=== PATIENT | male | born 1955 | race Caucasian/White ===

== ENCOUNTER → 2016-02-15 | Day surgery (SDC) | payer BC, OTHER ==
[2016-01-26 09:27] VITALS: Ht 170.2 cm; Wt 106.8 kg
[~2016-02-15] VITALS: Ht 170.2 cm; Wt 106.8 kg
[~2016-02-15] MED LIST: ASPI81TA28 PO; ATOR-26 PO; CRD4 PO; DULO1CAP39 PO; EPP3/2 IM; IBUP-1050 PO; LIDOCAINE HCL 2% 2 ML VIAL (20MG/ML) ONE; LINA1CAP PO; MULT-506 PO; OXYC1TAB3 PO; PHENYLEPHRINE 100MCG/ML 5ML SYR ONE; POLY335019 PO; PRLSR20 PO; PROPOFOL IV EMULSION 10 MG/ML 20 ML VIAL IV ONE; ZOLP10TA PO; [UNRECOGNIZED DRUG - CODE] PO
[2016-02-15 14:03] VITALS: TEMP 36.8
--- NOTE | 2016-02-15 14:42 | Endo History and Physical ---
History & Physical Date of Service: Feb 15, 2016. Chief Complaint: GERD, CONSTIPATION Referring Physician: Dr. Neftaly Villatoro History of Present Illness For EGD and colonoscopy Past Medical History Male Genitourinary Prob., Reflux, High Cholesterol, Sleep Apnea Past Surgical History Hx Cardiac Surgery: Yes (HEART CATH, NO STENTS) Hx Internal Defibrillator: No Hx Pacemaker: No Hx Abdominal Surgery: Yes (L/R INGUINAL HERNIA REPAIR, UMBILICAL HERNIA REPAIR) Hx of Implantable Prosthesis: No Hx Post-Op Nausea and Vomiting: No Hx Cancer Surgery: No Hx Thoracic Surgery: No Hx Orthopedic: Yes (BACK SURGERY X4, LT ULNAR NERVE SURGERY, RT KNEE SURGERY) Hx Urinary Tract Surgery: No Family History Esophogeal CA, Polyp Social History Smoking Status: Never Smoker Hx Substance Use: No Hx Alcohol Use: Yes (OCCASIONAL) Allergies Coded Allergies: BEE STING (Verified Allergy, Unknown, SITE SWELLING, DIFFICULTY BREATHING , 02/15/16) Horse Serum Proteins (Verified Allergy, Unknown, RASH/GENERALIZED SWELLING , 02/15/16) Tetanus Toxoid (Verified Allergy, Unknown, RASH/GENERALIZED SWELLING, ) Current Medications Reported Home Medications Medications Dose Route/Sig Max Daily Dose Days Date Category Advil (Ibuprofen) 200 Mg Tab 400 Mg PO 02/15/16 Reported Roxicodone Ir (Oxycodone HCl) 5 Mg Tab 1-2 Tab PO Q2-3H PRN 01/26/16 Reported Lipitor (Atorvastatin Calcium) 80 Mg Tab 0.5 Tab PO HS 01/26/16 Reported Allergy Relief D (Loratadine & Pseudoephedrine) 1 Tab Tab 1 Tab PO QAM 11/24/15 Reported Ambien (Zolpidem Tartrate) 10 Mg Tab 10 Mg PO HS PRN 11/24/15 Reported Miralax (Polyethylene Glycol 3350) 1 Pow Pow 17 Gm PO QAM PRN 11/24/15 Reported Linzess (Linaclotide) 145 Mcg Cap 1 Cap PO QAM PRN 11/24/15 Reported Doxazosin Mesylate 4 Mg Tab 4 Mg PO PM 11/18/14 Reported Duloxetine HCl 30 Mg Cap 30 Mg PO QAM 11/18/14 Reported Epipen (Epinephrine) 0.3 Mg/0.3 Ml Inj 0.3 Mg IM UD PRN 11/18/14 Reported Aspirin Ec (Aspirin) 81 Mg Tab 81 Mg PO QAM 11/18/14 Reported Prilosec (Omeprazole) 20 Mg Capcr 20 Mg PO QAM 07/06/11 Reported Multivitamin (Multivitamins) Tab 1 Tab PO QAM 10/22/09 Reported Vital Signs Weight (Kilograms): 106.82 Height (Feet): 5 Height (Inches): 7 Date Time Temp Pulse Resp B/P Pulse Ox O2 Delivery O2 Flow Rate FiO2 02/15/16 14:03 36.8 65 20 128/71 97 Room Air 0 Physical Exam General Appearance: + obese Respiratory/Chest: Respiratory effort: no dyspnea Cardiovascular: Heart Auscultation: RRR Abdomen: Inspection & Palpation: soft Assessment and Plan GERD and constipation for EGD and colonoscopy
--- NOTE | 2016-02-15 15:02 | Discharge Instructions ---
Endoscopy Patient Instructions Date / Procedure(s) Performed Feb 15, 2016. Colonoscopy, EGD Allergy Information Coded Allergies: BEE STING (Verified Allergy, Unknown, SITE SWELLING, DIFFICULTY BREATHING , 02/15/16) Horse Serum Proteins (Verified Allergy, Unknown, RASH/GENERALIZED SWELLING , 02/15/16) Tetanus Toxoid (Verified Allergy, Unknown, RASH/GENERALIZED SWELLING, ) Discharge Date / Findings Feb 15, 2016. Diverticulosis Medication Instructions Stopped Medication(s): ASPIRIN-LAST DOSE 02/12/16 Restart Stopped Medication(s): resume meds Begin Miralax once a day OTC Provider Instructions Activity Restrictions - No exercising or heavy lifting for 24 hours. - Do not drink alcohol the day of the procedure. - Do not drive a car or operate machinery until the day after the procedure. - Do not make any important decisions or sign important papers in 24 hours after the procedure. Following Day: - Return to full activity which may include returning to work/school. Diet Start your diet with liquids and light foods (jello, soup, juice, toast). Then eat your usual diet if not nauseated. Treatment For Common After Affects For mild abdominal pain, bloating, or excessive gas: - Rest - Eat lightly - Lie on right side Follow-Up Information Follow-up with Dr. Neftaly Villatoro as scheduled Anesthesia Information What You Should Know You have had a procedure that required some medicine to reduce anxiety and discomfort. This treatment is called moderate sedation. After receiving the treatment, you may be sleepy, but you will be able to breathe on your own. The effects of the treatment may last for several hours. Follow these instructions along with Activity/Diet recommendations noted above: * Do NOT do anything where dizziness or clumsiness would be dangerous. * Rest quietly at home today, then you can be up and about tomorrow. * Have a responsible person stay with you the rest of today. * You may have had an I.V. today. If so, you may take the dressing off later today. Recommendations Call your doctor if: * Trouble breathing * Continuous vomiting for more than 24 hours * Temperature above 101 degrees * Severe abdominal pain or bloating * Pain not relieved by pain medicine ordered * There is increased drainage or redness from any incision * A large amount of rectal bleeding greater than 2-3 tablespoons. (If you had a polyp/s removed or have hemorrhoids, a small amount of blood - from the rectum is to be expected.) * You have any unanswered questions or concerns. IN THE EVENT OF A SERIOUS EMERGENCY, GO TO THE NEAREST EMERGENCY ROOM Your discharge instructions were prepared by provider Elder Clemens. Patient Instructions Signature Page Bryce Yeh Patient (or Guardian) Signature/Date: I have read and understand the instructions given to me by my caregivers. Caregiver/RN/Doctor Signature/Date: The above-named patient and/or guardian has received patient instructions on this date. + Original Patient Signature Page (only) stays with chart. Please make copy for patient.
--- NOTE | 2016-02-15 15:05 | GI REPORT ---
Procedure Date: 02/15/2016 2:39 PM Procedure: Upper GI endoscopy Indications: Heartburn, Suspected gastro-esophageal reflux disease Medicines: Propofol total dose 260 mg IV, Lidocaine 80 mg IV Complications: No immediate complications. Estimated Blood Loss: Estimated blood loss: none. Procedure: Pre-Anesthesia Assessment: - Prior to the procedure, a History and Physical was performed, and patient medications, allergies and sensitivities were reviewed. The patient's tolerance of previous anesthesia was reviewed. - The risks and benefits of the procedure and the sedation options and risks were discussed with the patient. All questions were answered and informed consent was obtained. After obtaining informed consent, the endoscope was passed under direct vision. Throughout the procedure, the patient's blood pressure, pulse, and oxygen saturations were monitored continuously. The Scope was introduced through the mouth, and advanced to the second part of duodenum. The upper GI endoscopy was accomplished without difficulty. The patient tolerated the procedure well. Findings: The esophagus was normal. The stomach was normal. The examined duodenum was normal. Impression: - Normal esophagus. - Normal stomach. - Normal examined duodenum. - No specimens collected. Recommendation: - Discharge patient to home (ambulatory). - Continue present medications. - Return to primary care physician PRN. Elder Clemens M.D. Elder Clemens MD 02/15/2016 3:04:53 PM This report has been signed electronically. Note Initiated On: 02/15/2016 2:39 PM
--- NOTE | 2016-02-15 15:09 | GI REPORT ---
Procedure Date: 02/15/2016 2:39 PM Procedure: Colonoscopy Indications: Constipation Medicines: Propofol total dose 260 mg IV, Lidocaine 80 mg IV Complications: No immediate complications. Estimated Blood Loss: Estimated blood loss: none. Procedure: Pre-Anesthesia Assessment: - Prior to the procedure, a History and Physical was performed, and patient medications, allergies and sensitivities were reviewed. The patient's tolerance of previous anesthesia was reviewed. - The risks and benefits of the procedure and the sedation options and risks were discussed with the patient. All questions were answered and informed consent was obtained. After I obtained informed consent, the scope was passed under direct vision. Throughout the procedure, the patient's blood pressure, pulse, and oxygen saturations were monitored continuously. The scope was introduced through the anus and advanced to the cecum, identified by appendiceal orifice and ileocecal valve. The colonoscopy was technically difficult and complex due to significant looping. Successful completion of the procedure was aided by applying abdominal pressure. The patient tolerated the procedure well. The quality of the bowel preparation was good. Findings: Multiple diverticula were found in the sigmoid colon. Impression: - Diverticulosis in the sigmoid colon. - No specimens collected. Recommendation: - Discharge patient to home (ambulatory). - Miralax 1 capful (17 grams) in 8 ounces of water PO daily indefinitely. - Repeat colonoscopy in 10 years for screening purposes. - Return to primary care physician PRN. Elder Clemens M.D. Elder Clemens MD 02/15/2016 3:08:10 PM This report has been signed electronically. Note Initiated On: 02/15/2016 2:39 PM
--- NOTE | 2016-02-15 15:15 | Anesthesiology Progress Note ---
Anesthesia Post Op Note Date & Time Feb 15, 2016 at 15:14 Vital Signs Vital Signs Past 12 Hours Date Time Temp Pulse Resp B/P Pulse Ox O2 Delivery O2 Flow Rate FiO2 02/15/16 14:03 36.8 65 20 128/71 97 Room Air 0 Notes Mental Status: alert / awake / arousable, participated in evaluation Pt Amnestic to Procedure: Yes Nausea / Vomiting: adequately controlled Pain: adequately controlled Airway Patency, RR, SpO2: stable & adequate BP & HR: stable & adequate Hydration State: stable & adequate Anesthetic Complications: no major complications apparent
[2016-02-15 15:31] VITALS: BP 129/79; PULSE 85; O2SAT 96
== END | disposition home or self-care (01) ==
LOC: C.GI 13:41
PROVIDERS: ATTEND Internal Medicine Gastroenterology
DX: K57.30 Diverticulosis of large intestine without perforation or abscess without bleeding (principal); K59.00 Constipation, unspecified; K21.9 Gastro-esophageal reflux disease without esophagitis; G47.30 Sleep apnea, unspecified; E78.00 Pure hypercholesterolemia, unspecified; Z80.0 Family history of malignant neoplasm of digestive organs; Z83.71 Family history of colonic polyps

== ENCOUNTER → 2017-04-12 | Outpatient (CLI) | payer OTHER ==
[~2017-04-12] MED LIST changes: -LIDOCAINE HCL 2% 2 ML VIAL (20MG/ML) ONE; -PHENYLEPHRINE 100MCG/ML 5ML SYR ONE; -PROPOFOL IV EMULSION 10 MG/ML 20 ML VIAL IV ONE
--- NOTE | 2017-04-12 15:09 | DIAGNOSTIC IMAGING REPORT ---
ART DOP LOWER EXT BILAT CLINICAL HISTORY: 61 years-old Male presenting with BILATERAL LOWER EXTREMITY CLAUDICATION. TECHNIQUE: Real-time grayscale and color and spectral Doppler ultrasound imaging of the bilateral lower extremities arteries was performed. Measurements calculated based on NASCET criteria. COMPARISON: None. FINDINGS: Right: Common femoral artery: Patent. Peak systolic velocity 102 cm/s. Superficial femoral artery: Patent. Peak systolic velocity 72-88 cm/s. Deep femoral artery: Patent. Peak systolic velocity 57 cm/s. Popliteal artery: Patent. Peak systolic velocity 52-57 cm/s. Anterior tibial artery: Patent. Peak systolic velocity 49-73 cm/s. Posterior tibial artery: Patent. Peak systolic velocity 57-73 cm/s. Peroneal artery: Patent. Peak systolic velocity 32-45 cm/s. Dorsalis pedis: Patent. Peak systolic velocity 62 cm/s. Left: Common femoral artery: Patent. Peak systolic velocity 83 cm/s. Superficial femoral artery: Patent. Peak systolic velocity 46-88 cm/s. Deep femoral artery: Patent. Peak systolic velocity 57 cm/s. Popliteal artery: Patent. Peak systolic velocity 53-54 cm/s. Anterior tibial artery: Patent. Peak systolic velocity 53-64 cm/s. Posterior tibial artery: Patent. Peak systolic velocity 58-74 cm/s. Peroneal artery: Patent. Peak systolic velocity 32-39 cm/s. Dorsalis pedis: Patent. Peak systolic velocity 65 cm/s. JOSÉ MIGUEL Brachial: Right: 124 mmHg, Left: 117 mmHg. Ankle (Posterior tibial): Right: 147 mmHg, Left: 137 mmHg. Ankle (Dorsalis pedis): Right: 134 mmHg, Left: 133 mmHg. Ankle/Brachial Index: Right: 1.08-1.19, Left: 1.07-1.1. Reference ranges: Normal JOSÉ MIGUEL 1.0-1.4; 0.9-0.99 borderline; less than 0.9 abnormal. IMPRESSION: 1. No hemodynamically significant stenosis. 2. Normal ankle-brachial indices. Electronically signed by: Neymar Wiggins M.D. 04/12/2017 3:07 PM Dictated Date/Time: 04/12/2017 3:04 PM
== END | disposition home or self-care (01) ==
LOC: C.ULTR 12:57
PROVIDERS: ATTEND Orthopaedic Surgery Orthopaedic Surgery of the Spine
DX: I73.9 Peripheral vascular disease, unspecified (principal)

== ENCOUNTER 2019-03-05 12:52 | Observation (INO) ==
[2019-03-05] MEDS ORDERED: SODIUM CHLORIDE 0.9% 1000ML 1,000 ML IV SCH (13:30)
[2019-03-05 13:54] LABS: Basophils # (auto) 0.02 K/uL (0-0.2); Basophils % (auto) 0.5 %; Eosinophils # (auto) 0.12 K/uL (0-0.5); Eosinophils % (auto) 2.7 %; Hematocrit (blood only) 39.8 % (42-52); Hemoglobin 13.7 g/dL (14.0-18.0); Immature Granulocytes # (auto) 0.01 K/uL (0.00-0.02); Immature Granulocytes % (auto) 0.2 %; Lymphocytes # (auto) 1.24 K/uL (1.2-3.4); Lymphocytes % (auto) 28.4 %; Mean Corpuscular Hemoglobin 30.9 pg (25-34); Mean Corpuscular Hgb Conc 34.4 g/dL (32-36); Mean Corpuscular Volume 89.6 fL (80-100); Mean Platelet Volume 9.1 fL (7.4-10.4); Monocytes # (auto) 0.31 K/uL (0.11-0.59); Monocytes % (auto) 7.1 %; Neutrophils # (auto) 2.67 K/uL (1.4-6.5); Neutrophils % (auto) 61.1 %; Platelet Count 206 K/uL (130-400); RDW Coefficient of Variation 13.2 % (11.5-14.5); RDW Standard Deviation 43.6 fL (36.4-46.3); Red Blood Count 4.44 M/uL (4.7-6.1); White Blood Count 4.37 K/uL (4.8-10.8)
--- NOTE | 2019-03-05 14:06 | XRay Report ---
XR chest 1V portable CLINICAL HISTORY: ams, htn dyspnea COMPARISON STUDY: 11/24/2015 FINDINGS: The bones soft tissues and hemidiaphragms are normal. The cardiomediastinal silhouette is n ormal. The lungs are clear. The pulmonary vasculature is normal. IMPRESSION: Negative chest. ACT 112: Negative or not required by law. The above report was generated using voice recognition software. It may contain grammatical, syntax or spelling errors. Electronically signed by: Willy Ospina M.D. 03/05/2019 2:05 PM
[2019-03-05 14:11] LABS: Albumin Level 3.9 gm/dl (3.4-5.0); Aspartate Aminotransferase 19 U/L (15-37); BUN Creatinine Ratio 10.2 (10-20); Blood Urea Nitrogen 11 mg/dl (7-18); Calcium 9.1 mg/dl (8.5-10.1); Carbon Dioxide 27 mmol/L (21-32); Chloride 108 mmol/L (98-107); Creatinine Clr Calc Pharmacy 74.3 ml/min; Est GFR (African American) 80.3; Est GFR (Non-African American) 69.3; Glucose 100 mg/dl (70-99); Lipase 71 U/L (73-393); Magnesium 2.1 mg/dl (1.8-2.4); Sodium 140 mmol/L (136-145)
[2019-03-05 14:23] LABS: Alanine Aminotransferase 29 U/L (12-78); Albumin Globulin Ratio 1.1 (0.9-2); Alkaline Phosphatase 81 U/L (45-117); Bilirubin,Total 0.3 mg/dl (0.2-1); Globulin 3.6 gm/dl (2.5-4.0); NT Pro B Type Natriuretic Pept 17 pg/ml (0-900); Total Protein 7.5 gm/dl (6.4-8.2); Troponin I < 0.015 ng/ml (0-0.045)
[2019-03-05] MEDS ORDERED: IOVERSOL 100ml IV PRN (14:34)
--- NOTE | 2019-03-05 14:46 | CT Scan Report ---
CT head/brain wo con CT DOSE: 1487.32 mGy.cm HISTORY: Mental status change gamino, htn, ams TECHNIQUE: Multiaxial CT images of the head were performed without the use of intravenous contrast. A dose lowering technique was utilized adhering to the principles of ALARA. Comparison: 12/20/2013 Findings: The paranasal sinuses and mastoid air cells are clear. The calvarium and skull base are int act. The ventricles and sulci are within normal limits. There is no mass, hematoma, midline shift, or acute infarct. Impression: No acute intracranial abnormality. ACT 112: Negative or not required by law. The above report was generated using voice recognition software. It may contain grammatical, syntax or spelling errors. Electronically signed by: Willy Ospina M.D. 03/05/2019 2:45 PM
--- NOTE | 2019-03-05 14:59 | CT Scan Report ---
CTA ANGIOGRAPHY OF THE HEAD CLINICAL HISTORY: Headache. Hypertension. Altered mental status. COMPARISON STUDY: Head CT December 20, 2013. TECHNIQUE: Helical axial images of the head were obtained following uneventful intravenous administr ation of 119 cc of Optiray 320. Automated exposure control was utilized for the study. A dose lower ing technique was utilized adhering to the principles of ALARA. FINDINGS: Please note that the CT of the neck will be reported separately. No acute intracranial hemo rrhage, midline shift or mass effect is present. Ventricular system is normal. The basilar cisterns a re patent. There are no extra axial collections. The bilateral M1, M2, A1 and A2 segments are patent. There is no intraluminal thrombus. No dissection or abrupt vessel cut off is identified. No signific ant stenosis is noted within the major intracranial vessels. There is no significant calvarial abnorm ality. Visualized portions of the sinuses and mastoid air cells are clear. IMPRESSION: Unremarkable CTA of the head. ACT 112: Negative or not required by law. Electronically signed by: Lionel Melchor M.D. 03/05/2019 2:57 PM
--- NOTE | 2019-03-05 15:01 | CT Scan Report ---
NECK CTA HISTORY: Altered Mental status. Headache. Hypertension. TECHNIQUE: Multiaxial CT images of the neck were performed following the intravenous administration o f contrast to evaluate the major cervical vessels. Maximum intensity projection images were also obta ined. All measurements were calculated based on NASCET criteria. A dose lowering technique was utili zed adhering to the principles of ALARA. COMPARISON STUDY: None. FINDINGS: The aortic arch and proximal great vessels are widely patent. There is no significant sten osis, occlusion, or dissection identified within the bilateral common carotid, internal carotid, or v ertebral arteries. Anterior cervical spinal fusion hardware is noted. Mild calcified plaque within th e right carotid bifurcation. IMPRESSION: No significant stenosis, occlusion, or dissection identified within the carotid or vertebral arteries . ACT 112: Negative or not required by law. Electronically signed by: Aleksandr Coronado M.D. 03/05/2019 3:00 PM
[2019-03-05] MEDS ORDERED: ACETAMINOPHEN 1,000 MG/100 ML VIAL IV STA (16:08)
[2019-03-05 16:15] LABS: Appearance Urine Clear (Clear); Bilirubin Urine Negative (Negative); Blood Urine Negative (Negative); Color Urine Yellow; Glucose Urine UA Negative (Negative); Ketones Urine Negative (Negative); Leukocyte Esterase Urine Negative (Negative); Nitrite Urine Negative (Negative); Protein Urine Negative (Negative); Specific Gravity Urine 1.009 (1.000-1.030); Urobilinogen Urine Negative (Negative)
[2019-03-05 16:33] LABS: Amphetamines+Metham, Urine Neg (Neg); Barbiturates, Urine Neg (Neg); Benzodiazepine, Urine Neg (Neg); Cocaine, Urine Neg (Neg); MDMA (Ecstacy), Urine Neg (Neg); Methadone, Urine Neg (Neg); Opiate, Urine Neg (Neg); Phencyclidine, Urine Neg (Neg)
--- NOTE | 2019-03-05 16:45 | History & Physical Report ---
Date of Service March 05, 2019 Assessment & Plan (1) AMS (altered mental status): Etiology uncertain. CVA/TIA vs seizure. Also consider transient arrhythmia, less likely hypoglycemia or medication effects -Observation to medical floor with telemetry -MRI unremarkable -EEG ordered -Neuro checks -Neurology consultation appreciated -Seizure precautions -Continue ASA and Rosuvastatin Present on Admission?: Yes (2) Hypertension: Currently not on antihypertensive agents -Continue to monitor Present on Admission?: Yes (3) Headache: Improved, mild. Does not seem to be a migraine PATEL/complex migraine -Tylenol as needed Present on Admission?: Yes (4) Dyslipidemia: Chronic. -Will increase Rosuvastatin to 5mg po daily from q M/W/F Present on Admission?: Yes (5) Obstructive sleep apnea: Patient does not use CPAP at home -CPAP qHS here -Encourage home use Present on Admission?: Yes (6) BPH (benign prostatic hyperplasia): Chronic. No symptoms -Continue Finasteride 5mg po qHS Present on Admission?: Yes (7) CAD (coronary artery disease): Chronic. Stable. No CP, no concern for acute ischemia -Continue ASA, Rosuvastatin Present on Admission?: Yes (8) Acid reflux: Chronic. Stable -Continue Omeprazole 20mg po daily F/E/N - Heplock. Electrolytes WNL. Heart healthy diet as tolerated Ppx - low risk Code - Full Dispo - Observation to medical floor with telemetry History of Present Illness Chief Complaint: Altered mental status Primary Care Provider: Trupti Reese DO Bryce Yeh is a pleasant 63yo C male with history of HTN/HLP/CAD/GERD presenting with AMS. Patient woke up this morning in his usual state of health. He went outside, drove to get gas, went up to his camp and put out a salt lick for the deer then went to the post office. When he returned home his noted that he wasn't acting himself. He had no recollection of going to the post office or of some of the day's events. His reports that between 10 and 10:30 he had at least 5 "staring episodes". Patient was minimally responsive during these episodes, staring at the TV afterwards he would jerk awake and ask his if he fell asleep. Additionally he is complaining of a dull frontal headache, as well as heaviness and slight numbness of his left leg. No additional complaints at this time. Specifically, patient denies visual changes, neck pain, chest pain, palpitations, cough, SOB, wheeze, nausea/vomiting/diarrhea or constipation. He feels that his mind is clearer now and he is near baseline. Allergies Allergy/AdvReac Type Severity Reaction Status Date / Time bee venom protein (honey bee) Allergy Severe Anaphylaxis Verified 03/05/19 14:44 Horse/Equine Containing Allergy Unknown RASH/GENERALIZED Verified 03/05/19 14:41 Products SWELLING tetanus toxoid, adsorbed Allergy Unknown RASH/GENERALIZED Verified 03/05/19 14:41 SWELLING Home Medications Home Medications Medication Instructions Recorded Confirmed Type cholecalciferol (vitamin D3) 25 1,000 units PO QAM 08/29/18 03/05/19 History mcg (1,000 unit) capsule doxazosin 4 mg tablet 4 mg PO BID #180 tab 08/29/18 03/05/19 Rx zinc 50 mg tablet 50 mg PO HS 08/29/18 03/05/19 History cetirizine 10 mg tablet 10 mg PO QAM tab 10/11/18 03/05/19 History lactobacillus combination no.8 1 tab PO UD 11/21/18 03/05/19 History aspirin [Adult Low Dose Aspirin] 81 mg PO QAM 03/05/19 03/05/19 History finasteride 5 mg PO HS 03/05/19 03/05/19 History multivitamin 1 tab PO QAM 03/05/19 03/05/19 History omeprazole 20 mg PO QAM 03/05/19 03/05/19 History rosuvastatin 5 mg PO MOWEFR@0800 03/05/19 03/05/19 History Past Med/Surg History Medical History Acid reflux Allergic rhinitis BPH (benign prostatic hyperplasia) CAD (coronary artery disease) Cervical stenosis of spinal canal Dyslipidemia History of hepatitis History of renal calculi Hyperlipidemia Hypertension Lumbar stenosis with neurogenic claudication Obstructive sleep apnea Surgical History H/O spinal fusion (2015) History of inguinal hernia repair History of knee surgery History of uvulectomy (2000) S/P cervical spinal fusion (06/04/18) S/P decompression of ulnar nerve L elbow S/P fusion of thoracic spine (2011) S/P lumbar fusion (2003) S/P nasal septoplasty S/P tonsillectomy and adenoidectomy (2000) Family History Father Myocardial infarction, Onset Age: 60 Heart disease S/P CABG x 4 Mother Myocardial infarction, Onset Age: 60 Heart disease S/P CABG x 4 Diabetes Kidney disease Brother Anxiety Esophageal cancer Pacemaker Social History Preferred Language: Slovak Communication Ability: Effective Visual Impairment: No Limitations Hearing Ability: Normal Traveling Inventory Associate Required: No Beliefs That Will Affect Care: None marital status: Current Living Situation: Spouse current occupational status: employed current occupation: out of school hours care worker Other Information That Helps Us Care for You: No Feels Safe at Home: Yes Safety Concerns: Feels Safe At This Time Smoking Status: Former smoker Tobacco Type: cigarettes and smokeless tobacco ; Age Started Using Tobacco: 14 ; Age Quit Using Tobacco: 28 ; packs per day: 1 ; Second Hand Exposure: Yes ; Hx Alcohol Use: Yes Alcohol type: beer Alcohol Intake Frequency: Weekly Hx Substance Use: No Dental Care, Regularly: Yes Physical Activity Frequency: 1-2 Times per Week Seatbelt Use: always Review of Systems Review of Systems: All systems reviewed & are unremarkable except as noted in HPI & below Physical Exam Physical Exam: General: patient resting comfortably, NAD, non-toxic in appearance, AA&O x 4 Skin: warm, dry, intact, no rashes or lesions HEENT: NC/AT, PERRL, EOMI, anicteric sclera, conjunctiva without injection, external ear normal to inspection and nontender, nares patent, moist mucus membranes, dentition intact, no oropharyngeal lesions, neck supple, trachea midline, no LAD, no thyromegaly, no JVD Heart: +S1/S2, regular, no m/r/g Lungs: equal air entry bilaterally, no rales/rhonchi/wheezes Abd: +BS, soft, mildly distended and tympanic to percussion, diffusely tender with deep palpation, no rebound/guarding/peritoneal signs, no masses/organomegaly/ascites Ext: warm, 2+ pulses in UE/LE bilaterally, no clubbing/cyanosis or edema Neuro: nonfocal, patient AA&O x 4, speech intact, no facial droop, CN II - XII grossly intact, sensation to light touch mildly diminished in medial portion of left leg, 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, otherwise MS 5/5 UE/LE bilaterally, coordination intact, gait/balance not assessed Results & Data Vital Signs (Past 12 Hours) Vital Signs Temp Pulse Resp BP Pulse Ox 03/05/19 14:45 88 21 98 03/05/19 14:44 73 03/05/19 13:19 75 21 155/97 H 96 03/05/19 12:55 36.8 C 73 16 172/114 H 98 Laboratory Results Lab Results 03/05/19 03/05/19 03/05/19 Range/Units 13:38 13:38 13:38 WBC 4.37 L (4.8-10.8) K/uL RBC 4.44 L (4.7-6.1) M/uL Hgb 13.7 L (14.0-18.0) g/dL Hct 39.8 L (42-52) % MCV 89.6 (80-100) fL MCH 30.9 (25-34) pg MCHC 34.4 (32-36) g/dL RDW Std Deviation 43.6 (36.4-46.3) fL RDW Coeff of [place] 13.2 (11.5-14.5) % Plt Count 206 (130-400) K/uL MPV 9.1 (7.4-10.4) fL Immature Gran % (Auto) 0.2 % Neut % (Auto) 61.1 % Lymph % (Auto) 28.4 % [place] % (Auto) 7.1 % Eos % (Auto) 2.7 % Baso % (Auto) 0.5 % Immature Gran # (Auto) 0.01 (0.00-0.02) K/uL Neut # (Auto) 2.67 (1.4-6.5) K/uL Lymph # (Auto) 1.24 (1.2-3.4) K/uL [place] # (Auto) 0.31 (0.11-0.59) K/uL Eos # (Auto) 0.12 (0-0.5) K/uL Baso # (Auto) 0.02 (0-0.2) K/uL Sodium 140 (136-145) mmol/L Potassium 4.0 (3.5-5.1) mmol/L Chloride 108 H (98-107) mmol/L Carbon Dioxide 27 (21-32) mmol/L Anion Gap 5.0 (3-11) BUN 11 (7-18) mg/dl Creatinine 1.11 (0.6-1.4) mg/dl Est Cr Clr Drug Dosing 74.3 ml/min Est GFR ( Amer) 80.3 Est GFR (Non-Af Amer) 69.3 BUN/Creatinine Ratio 10.2 (10-20) Glucose 100 H (70-99) mg/dl Calcium 9.1 (8.5-10.1) mg/dl Phosphorus 3.4 (2.5-4.9) mg/dl Magnesium 2.1 (1.8-2.4) mg/dl Total Bilirubin 0.3 (0.2-1) mg/dl AST 19 (15-37) U/L ALT 29 (12-78) U/L Alkaline Phosphatase 81 (45-117) U/L Troponin I < 0.015 (0-0.045) ng/ml NT-Pro-B Natriuret Pep 17 (0-900) pg/ml Total Protein 7.5 (6.4-8.2) gm/dl Albumin 3.9 (3.4-5.0) gm/dl Globulin 3.6 (2.5-4.0) gm/dl Albumin/Globulin Ratio 1.1 (0.9-2) Lipase 71 L (73-393) U/L TSH 2.150 (0.300-4.500) uIu/ml Urine Color Urine Appearance (Clear) Urine pH (4.5-7.5) Ur Specific [place] (1.000-1.030) Urine Protein (Negative) Urine Glucose (UA) (Negative) Urine Ketones (Negative) Urine Blood (Negative) Urine Nitrite (Negative) Urine Bilirubin (Negative) Urine Urobilinogen (Negative) Ur Leukocyte Esterase (Negative) Urine Opiates Screen (Neg) Ur Methadone, Qual (Neg) Urine Barbiturates (Neg) Ur Phencyclidine (PCP) (Neg) U Amphetamin/Meth Scrn (Neg) MDMA (Ecstasy) Screen (Neg) U Benzodiazepines Scrn (Neg) Ur Cocaine Metabolite (Neg) U Marijuana (THC) Screen (Neg) 03/05/19 03/05/19 Range/Units 13:40 13:40 WBC (4.8-10.8) K/uL RBC (4.7-6.1) M/uL Hgb (14.0-18.0) g/dL Hct (42-52) % MCV (80-100) fL MCH (25-34) pg MCHC (32-36) g/dL RDW Std Deviation (36.4-46.3) fL RDW Coeff of [place] (11.5-14.5) % Plt Count (130-400) K/uL MPV (7.4-10.4) fL Immature Gran % (Auto) % Neut % (Auto) % Lymph % (Auto) % [place] % (Auto) % Eos % (Auto) % Baso % (Auto) % Immature Gran # (Auto) (0.00-0.02) K/uL Neut # (Auto) (1.4-6.5) K/uL Lymph # (Auto) (1.2-3.4) K/uL [place] # (Auto) (0.11-0.59) K/uL Eos # (Auto) (0-0.5) K/uL Baso # (Auto) (0-0.2) K/uL Sodium (136-145) mmol/L Potassium (3.5-5.1) mmol/L Chloride (98-107) mmol/L Carbon Dioxide (21-32) mmol/L Anion Gap (3-11) BUN (7-18) mg/dl Creatinine (0.6-1.4) mg/dl Est Cr Clr Drug Dosing ml/min Est GFR ( Amer) Est GFR (Non-Af Amer) BUN/Creatinine Ratio (10-20) Glucose (70-99) mg/dl Calcium (8.5-10.1) mg/dl Phosphorus (2.5-4.9) mg/dl Magnesium (1.8-2.4) mg/dl Total Bilirubin (0.2-1) mg/dl AST (15-37) U/L ALT (12-78) U/L Alkaline Phosphatase (45-117) U/L Troponin I (0-0.045) ng/ml NT-Pro-B Natriuret Pep (0-900) pg/ml Total Protein (6.4-8.2) gm/dl Albumin (3.4-5.0) gm/dl Globulin (2.5-4.0) gm/dl Albumin/Globulin Ratio (0.9-2) Lipase (73-393) U/L TSH (0.300-4.500) uIu/ml Urine Color Yellow Urine Appearance Clear (Clear) Urine pH 8.0 H (4.5-7.5) Ur Specific [place] 1.009 (1.000-1.030) Urine Protein Negative (Negative) Urine Glucose (UA) Negative (Negative) Urine Ketones Negative (Negative) Urine Blood Negative (Negative) Urine Nitrite Negative (Negative) Urine Bilirubin Negative (Negative) Urine Urobilinogen Negative (Negative) Ur Leukocyte Esterase Negative (Negative) Urine Opiates Screen Neg (Neg) Ur Methadone, Qual Neg (Neg) Urine Barbiturates Neg (Neg) Ur Phencyclidine (PCP) Neg (Neg) U Amphetamin/Meth Scrn Neg (Neg) MDMA (Ecstasy) Screen Neg (Neg) U Benzodiazepines Scrn Neg (Neg) Ur Cocaine Metabolite Neg (Neg) U Marijuana (THC) Screen Neg (Neg) Diagnostic Findings CTA ANGIOGRAPHY OF THE HEAD CLINICAL HISTORY: Headache. Hypertension. Altered mental status. COMPARISON STUDY: Head CT December 20, 2013. TECHNIQUE: Helical axial images of the head were obtained following uneventful intravenous administration of 119 cc of Optiray 320. Automated exposure control was utilized for the study. A dose lowering technique was utilized adhering to the principles of ALARA. FINDINGS: Please note that the CT of the neck will be reported separately. No acute intracranial hemorrhage, midline shift or mass effect is present. Ventricular system is normal. The basilar cisterns are patent. There are no extra axial collections. The bilateral M1, M2, A1 and A2 segments are patent. There is no intraluminal thrombus. No dissection or abrupt vessel cut off is identified. No significant stenosis is noted within the major intracranial vessels. There is no significant calvarial abnormality. Visualized portions of the sinuses and mastoid air cells are clear. IMPRESSION: Unremarkable CTA of the head. ACT 112: Negative or not required by law. Electronically signed by: Lionel Melchor M.D. 03/05/2019 2:57 PM Dictated: 03/05/19 1449 Transcribed: 03/05/19 1449 NECK CTA HISTORY: Altered Mental status. Headache. Hypertension. TECHNIQUE: Multiaxial CT images of the neck were performed following the intravenous administration of contrast to evaluate the major cervical vessels. Maximum intensity projection images were also obtained. All measurements were calculated based on NASCET criteria. A dose lowering technique was utilized adhering to the principles of ALARA. COMPARISON STUDY: None. FINDINGS: The aortic arch and proximal great vessels are widely patent. There is no significant stenosis, occlusion, or dissection identified within the bilateral common carotid, internal carotid, or vertebral arteries. Anterior cervical spinal fusion hardware is noted. Mild calcified plaque within the right carotid bifurcation. IMPRESSION: No significant stenosis, occlusion, or dissection identified within the carotid or vertebral arteries. ACT 112: Negative or not required by law. Electronically signed by: Aleksandr Coronado M.D. 03/05/2019 3:00 PM Dictated: 03/05/19 1456 Transcribed: 03/05/19 1456 XR chest 1V portable CLINICAL HISTORY: ams, htn dyspnea COMPARISON STUDY: 11/24/2015 FINDINGS: The bones soft tissues and hemidiaphragms are normal. The cardiomediastinal silhouette is normal. The lungs are clear. The pulmonary vasculature is normal. IMPRESSION: Negative chest. ACT 112: Negative or not required by law. The above report was generated using voice recognition software. It may contain grammatical, syntax or spelling errors. Electronically signed by: Willy Ospina M.D. 03/05/2019 2:05 PM Dictated: 03/05/19 1355 Transcribed: 03/05/19 [address] head/brain wo con CT DOSE: 1487.32 mGy.cm HISTORY: Mental status change patel, htn, ams TECHNIQUE: Multiaxial CT images of the head were performed without the use of intravenous contrast. A dose lowering technique was utilized adhering to the principles of ALARA. Comparison: 12/20/2013 Findings: The paranasal sinuses and mastoid air cells are clear. The calvarium and skull base are intact. The ventricles and sulci are within normal limits. There is no mass, hematoma, midline shift, or acute infarct. Impression: No acute intracranial abnormality. ACT 112: Negative or not required by law. The above report was generated using voice recognition software. It may contain grammatical, syntax or spelling errors. Electronically signed by: Willy Ospina M.D. 03/05/2019 2:45 PM Dictated: 03/05/19 1444 Transcribed: 03/05/19 1444 --- -------- MRI OF THE BRAIN WITHOUT CONTRAST CLINICAL HISTORY: Acute change in mental status, syncope, headache. COMPARISON STUDY: CT scan dated 03/05/2019 FINDINGS: Sagittal T1, axial diffusion, proton density and T2 weighted axial, coronal FLAIR, and axial T1-weighted images were acquired. No intra or extra-axial mass lesions are visualized Axial diffusion-weighted images reveal no evidence of acute or subacute infarction. There is no evidence of ventricular dilatation. Proton density T2-weighted and FLAIR images reveal scattered foci of increased T2 signal within the white matter, likely on a small vessel basis. There are no abnormal flow voids. IMPRESSION: 1. No acute intracranial findings 2. No evidence of acute or subacute infarction 3. No evidence of intracranial mass in this noncontrast study 4. Scattered foci of increased T2 signal within the white matter likely on a small vessel basis ACT 112: Negative or not required by law. Electronically signed by: Aaron Carroll M.D. 03/05/2019 5:26 PM Dictated: 03/05/19 1724 Transcribed: 03/05/19 1724 ECG Additional Comments: The study shows NSR at 66bpm with sinus arrhythmia, no acute ischemic changes Code Status & VTE Plan VTE Prophylaxis Plan VTE Prophylaxis will be ordered: Yes PG Care Time/CCT Total # of Minutes Spent Total Time Spent with Patient: Total time spent is greater than 50% in coordination of care (as documented) at patient's floor/unit and/or counseling patient: Coding Level of Care Code 74567 OBS Care - Level 3 Diagnoses AMS (altered mental status) R41.82 Altered mental status type: unspecified Hypertension I10 Hypertension type: unspecified Headache R51 Headache chronicity pattern: unspecified pattern Headache type: unspecified Intractability: not intractable Dyslipidemia E78.5 Obstructive sleep apnea G47.33 BPH (benign prostatic hyperplasia) N40.0 Lower urinary tract symptom presence: symptoms absent CAD (coronary artery disease) I25.10 Coronary Disease-Associated Artery/Lesion type: [place] artery [place] vs. transplanted heart: [place] heart Associated angina: without angina Acid reflux K21.9 (1) AMS (altered mental status) Altered mental status type: unspecified Qualified Code(s): R41.82 - Altered mental status, unspecified (2) Hypertension Hypertension type: unspecified Qualified Code(s): I10 - Essential (primary) hypertension (3) Headache Headache chronicity pattern: unspecified pattern Headache type: unspecified Intractability: not intractable Qualified Code(s): R51 - Headache (4) BPH (benign prostatic hyperplasia) Lower urinary tract symptom presence: symptoms absent Qualified Code(s): N40.0 - Benign prostatic hyperplasia without lower urinary tract symptoms (5) CAD (coronary artery disease) Coronary Disease-Associated Artery/Lesion type: [place] artery [place] vs. transplanted heart: [place] heart Associated angina: without angina Qualified Code(s): I25.10 - Atherosclerotic heart disease of [place] coronary artery without angina pectoris
[2019-03-05] MEDS ORDERED: ACETAMINOPHEN 500 MG TAB ONE (16:50)
[2019-03-05] MEDS ORDERED: ACETAMINOPHEN 500 MG TAB PO STA (16:59)
--- NOTE | 2019-03-05 17:28 | Magnetic Resonance Report ---
MRI OF THE BRAIN WITHOUT CONTRAST CLINICAL HISTORY: Acute change in mental status, syncope, headache. COMPARISON STUDY: CT scan dated 03/05/2019 FINDINGS: Sagittal T1, axial diffusion, proton density and T2 weighted axial, coronal FLAIR, and axial T1-weigh sofy images were acquired. No intra or extra-axial mass lesions are visualized Axial diffusion-weighted images reveal no evidence of acute or subacute infarction. There is no evidence of ventricular dilatation. Proton density T2-weighted and FLAIR images reveal scattered foci of increased T2 signal within the w trudy matter, likely on a small vessel basis. There are no abnormal flow voids. IMPRESSION: 1. No acute intracranial findings 2. No evidence of acute or subacute infarction 3. No evidence of intracranial mass in this noncontrast study 4. Scattered foci of increased T2 signal within the white matter likely on a small vessel basis ACT 112: Negative or not required by law. Electronically signed by: Aaron Carroll M.D. 03/05/2019 5:26 PM
[2019-03-05] MEDS ORDERED: ACETAMINOPHEN 325 MG TAB PO PRN (18:02)
[2019-03-05] MEDS ORDERED: DOCUSATE SODIUM 100 MG CAP PO PRN (18:02)
[2019-03-05] MEDS ORDERED: POLYETHYLENE (MIRALAX) 17 GM PACK PO PRN (18:02)
[2019-03-05] MEDS: DOXAZosin MESYLATE 4 MG TAB PO SCH (20:17)
[2019-03-05] MEDS ORDERED: ZINC SULFATE 220 MG CAPSULE PO SCH (21:00)
[2019-03-05] MEDS ORDERED: FINASTERIDE 5 MG TAB PO SCH (21:00)
--- NOTE | 2019-03-05 22:16 | Ultrasound Report ---
US venous doppler LE RT CLINICAL HISTORY: swelling, pain right calf COMPARISON STUDY: No previous studies for comparison. FINDINGS: Real-time and color flow Doppler imaging were performed. Flow was seen within the femoral, popliteal and calf veins with no intraluminal thrombus demonstrated. The saphenous vein is patent. IMPRESSION: No evidence of right lower extremity DVT. ACT 112: Negative or not required by law. Electronically signed by: Aaron Carroll M.D. 03/05/2019 10:15 PM
[2019-03-06 07:28] LABS: Chol HDL Ratio 5; Cholesterol 193 mg/dl (0-200); HDL Cholesterol 36 mg/dl; LDL Cholesterol Calculated 99 mg/dl; Triglycerides 291 mg/dl (0-150); VLDL Cholesterol 58 mg/dl
[2019-03-06] MEDS: DOXAZosin MESYLATE 4 MG TAB PO SCH (08:26)
[2019-03-06] MEDS ORDERED: PANTOprazole 40 MG TAB PO SCH (09:00)
[2019-03-06] MEDS ORDERED: CETIRIZINE HCL 10 MG TABLET PO SCH (09:00)
[2019-03-06] MEDS ORDERED: ASPIRIN 81 MG ECTAB PO SCH (09:00)
[2019-03-06] MEDS ORDERED: ROSUVASTATIN CALCIUM 5 MG TAB PO SCH ×2 (09:00)
--- NOTE | 2019-03-06 13:59 | Neurology Consultation ---
Date of Consultation March 06, 2019 Assessment & Plan (1) AMS (altered mental status): Bryce Yeh is a 63 yo man w/ PMH of CAD, HLD, HTN, h/o hepatitis, h/o nephrolithiasis, lumbar stenosis c/b neurogenic claudication, cervical stenosis, FIORDALIZA on CPAP, BPH and GERD who p/t [facility] on 03/05/19 after an episode of confusion and transient memory loss. # Transient AMS a/w starring spells: no signs of stroke on imaging (NIHSS 0 on examination today). Ddx includes possible seizure in the setting of sleep deprivation vs transient hypercarbia from not using his CPAP vs sleep deprivation/recent stressors causing transient memory loss. Doesn't quite fit with transient global amnesia. - as no clear seizure focus, normal EEG and not clearly a seizure by semiology, do not need to start AEDs at this time - he will follow up in neurology clinic in 4-6 weeks - he and his was advised to call the office should he have another event before his follow up appointment and to record the event as well. We will likely recommend referral to the EMU at that time for spell classification and starting an AED if further similar events occur in the future. Thank you for this interesting consult. Please text or call with questions. (2) Obstructive sleep apnea: History of Present Illness Attending Physician: German Lopez History of Present Illness Bryce Yeh is a 63 yo man w/ PMH of CAD, HLD, HTN, h/o hepatitis, h/o nephrolithiasis, lumbar stenosis c/b neurogenic claudication, cervical stenosis, FIORDALIZA on CPAP, BPH and GERD who p/t [facility] on 03/05/19 after an episode of confusion and transient memory loss. He was in his normal state of health until the morning of 03/05 when he woke up, drove to put salt out for the dear, and then went to the post office. His noticed that he was acting strange when he came home and he reported having no recollection of most of the morning's events. His noticed that he had at least 5 episodes of staring between 10 and 10:30 AM where he would just tear off into space blankly and not respond to her. He would jerk awake and ask if he had fallen asleep afterwards. This was associated with a mild frontal headache and mild numbness of his left lower extremity. In the ED, he was noted to be afebrile with heart rate 73, respiratory rate 16, blood pressure 172/114 and pulse ox 90% on room air. Labs showed white count 4.37, hemoglobin 13.7 with normocytosis, platelets 206, unremarkable BMP except for creatinine 1.1, glucose 100, calcium 9.1, phosphorus 3.4, magnesium 2.1, negative troponin, BNP 17, TSH within normal, LFTs within normal, UA no infection, UDS negative. Lower extremity Doppler showed no signs of DVT. Images have been independently reviewed: CT head shows no hemorrhage or hypodensity. CTA of the head and neck showed no LVO, high-grade stenosis or aneurysm. Chest x-ray shows no sign of infection or cardiomegaly. MRI brain shows mild generalized atrophy with mild small vessel ischemic disease, questionable right mesial temporal sclerosis. On examination today, he reports that he feels back to baseline. 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 His reports that when he got back home, he was sitti ng in the chair playing with his phone when she saw 5 similar starring spells where she initially thought he was watching tv but he didn't respond right away, and when he did respond, he asked if he had fallen asleep. He denies losing consciousness, automatisms, tongue biting, or loss of bowel/bladder. He has not ever had something like this in the past before. No family history of seizures. Does endorse sleep deprivation with a new puppy at home and not using his CPAP since it stopped working correctly. No recent medication changes, does have a stuffy nose for several months. Thought that his RUE/RLE might be a bit weaker than his left side but mostly resolved at this time. Allergies Allergy/AdvReac Type Severity Reaction Status Date / Time bee venom protein (honey bee) Allergy Severe Anaphylaxis Verified 03/05/19 14:44 Horse/Equine Containing Allergy Unknown RASH/GENERALIZED Verified 03/05/19 14:41 Products SWELLING tetanus toxoid, adsorbed Allergy Unknown RASH/GENERALIZED Verified 03/05/19 14:41 SWELLING Home Medications Home Medications Medication Instructions Recorded Confirmed Type cholecalciferol (vitamin D3) 25 1,000 units PO QAM 08/29/18 03/05/19 History mcg (1,000 unit) capsule doxazosin 4 mg tablet 4 mg PO BID #180 tab 08/29/18 03/05/19 Rx zinc 50 mg tablet 50 mg PO HS 08/29/18 03/05/19 History cetirizine 10 mg tablet 10 mg PO QAM tab 10/11/18 03/05/19 History lactobacillus combination no.8 1 tab PO UD 11/21/18 03/05/19 History aspirin [Adult Low Dose Aspirin] 81 mg PO QAM 03/05/19 03/05/19 History finasteride 5 mg PO HS 03/05/19 03/05/19 History multivitamin 1 tab PO QAM 03/05/19 03/05/19 History omeprazole 20 mg PO QAM 03/05/19 03/05/19 History rosuvastatin 5 mg PO MOWEFR@0800 03/05/19 03/05/19 History Patient History Medical History Acid reflux Allergic rhinitis BPH (benign prostatic hyperplasia) CAD (coronary artery disease) Cervical stenosis of spinal canal Dyslipidemia History of hepatitis History of renal calculi Hyperlipidemia Hypertension Lumbar stenosis with neurogenic claudication Obstructive sleep apnea Surgical History H/O spinal fusion (2015) History of inguinal hernia repair History of knee surgery History of uvulectomy (2000) S/P cervical spinal fusion (07/10/17) S/P decompression of ulnar nerve L elbow S/P fusion of thoracic spine (2011) S/P lumbar fusion (2003) S/P nasal septoplasty S/P tonsillectomy and adenoidectomy (2000) Family History Father Myocardial infarction, Onset Age: 60 Heart disease S/P CABG x 4 Mother Myocardial infarction, Onset Age: 60 Heart disease S/P CABG x 4 Diabetes Kidney disease Brother Anxiety Esophageal cancer Pacemaker Social History Preferred Language: Japanese Communication Ability: Effective Visual Impairment: No Limitations Hearing Ability: Normal 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 Beliefs That Will Affect Care: None marital status: Current Living Situation: Spouse current occupational status: employed current occupation: high school library media specialist Feels Safe at Home: Yes Smoking Status: Former smoker Tobacco Type: cigarettes and smokeless tobacco ; Age Started Using Tobacco: 14 ; Age Quit Using Tobacco: 28 ; packs per day: 1 ; Second Hand Exposure: Yes ; Hx Alcohol Use: Yes Alcohol type: beer Alcohol Intake Frequency: Weekly Hx Substance Use: No Dental Care, Regularly: Yes Physical Activity Frequency: 1-2 Times per Week Seatbelt Use: always Review of Systems Review of Systems: 14 point review of systems completed and negative except as in HPI. Physical Exam Physical Exam: General Exam: GEN: NAD, sitting in bed. HEENT: No conjunctival injection, no rhinorrhea. CV: RRR, no peripheral edema PULM: Nonlabored respirations on room air. Neuro Exam: MS: Awake and Alert. Oriented to person, place, and date. Speech fluent and appropriate without dysarthria or paraphasic errors. Language intact including naming, comprehension, repetition. Cognition and memory grossly intact. Attention intact. No neglect. CN: Visual barba full. No extinction to double simultaneous stimuli. No optic disc edema on fundoscopic exam. PERRLA OU. EOMI without nystagmus. Facial sensation intact to LT. Facial muscles full and symmetric. Hearing intact to conversation. Uvula midline with symmetric palatal elevation. Shoulder shrug normal. Tongue midline. MOTOR: Normal bulk and tone. No pronator drift. BUE strength 5/5 at deltoids, biceps, triceps, wrist flexors and extensors, and hand grasp bilaterally. BLE strength 5/5 at iliopsoas, hamstrings, quadriceps, tibialis anterior, and gastrocnemius bilaterally. REFLEXES: 1+ at biceps, triceps, brachioradialis, 1+ patella and trace Achilles bilaterally. Flexor plantar responses bilaterally. SENSORY: Intact to LT without extinction to double simultaneous stimuli. Vibration and temperature intact throughout. COORDINATION: No dysmetria or ataxia on [id number] bilaterally. Normal Kashif bilaterally. GAIT: Normal gait and arm swing. Normal Romberg. Results & Data Vital Signs (Past 12 Hours) Vital Signs Temp Pulse Pulse Resp BP Pulse Ox 03/06/19 12:39 36.7 C 85 18 120/79 94 03/06/19 08:00 99 H 03/06/19 07:54 59 L 03/06/19 07:35 36.6 C 64 18 122/74 95 03/06/19 04:27 36.4 C L 67 18 119/81 95 03/06/19 03:22 57 L 16 97 PG Care Time/CCT Total # of Minutes Spent Total Time Spent with Patient: Total time spent is greater than 50% in coordination of care (as documented) at patient's floor/unit and/or counseling patient: Coding Level of Care Code 78473 Inpt Consult Level 5 Diagnoses AMS (altered mental status) R41.82 Altered mental status type: unspecified Obstructive sleep apnea G47.33 (1) AMS (altered mental status) Altered mental status type: unspecified Qualified Code(s): R41.82 - Altered mental status, unspecified
--- NOTE | 2019-03-06 17:38 | Electrocardiogram Report ---
Test Reason : Blood Pressure : / mmHG Vent. Rate : 066 BPM Atrial Rate : 066 BPM P-R Int : 146 ms QRS Dur : 088 ms QT Int : 396 ms P-R-T Axes : 038 008 046 degrees QTc Int : 415 ms Sinus rhythm with marked sinus arrhythmia Possible Left atrial enlargement Possible Inferior infarct , age undetermined Abnormal ECG When compared with ECG of 06-JUL-2011 11:33, Borderline criteria for Inferior infarct are now Present Confirmed by Mitch Mackenzie ([id number]) on 03/06/2019 5:38:13 PM Referred By: REFERRED SELF Confirmed By:Rob Mackenzie
--- NOTE | 2019-03-06 18:55 | Electroencephalogram ---
EEG Procedure Note Date of Service March 06, 2019 Start / End Times Start Time: 5:40am End Time: 6am Referring Physician Sepideh Stewart History 63 yo man admitted for transient confusion and starring episodes x5 Home Medication List Home Medications Medication Instructions Recorded Confirmed Type cholecalciferol (vitamin D3) 25 1,000 units PO QAM 08/29/18 03/05/19 History mcg (1,000 unit) capsule doxazosin 4 mg tablet 4 mg PO BID #180 tab 08/29/18 03/05/19 Rx zinc 50 mg tablet 50 mg PO HS 08/29/18 03/05/19 History cetirizine 10 mg tablet 10 mg PO QAM tab 10/11/18 03/05/19 History lactobacillus combination no.8 1 tab PO UD 11/21/18 03/05/19 History aspirin [Adult Low Dose Aspirin] 81 mg PO QAM 03/05/19 03/05/19 History finasteride 5 mg PO HS 03/05/19 03/05/19 History multivitamin 1 tab PO QAM 03/05/19 03/05/19 History omeprazole 20 mg PO QAM 03/05/19 03/05/19 History rosuvastatin 5 mg PO MOWEFR@0800 03/05/19 03/05/19 History Inpatient Medication List Discontinued Medications Acetaminophen (Tylenol) Confirm Administered Dose 1,000 mg .ROUTE .STK-MED ONE Stop: 03/05/19 16:51 Last Admin: 03/05/19 17:00 Dose: Not Given Documented by: [id number] Acetaminophen (Tylenol) 1,000 mg PO NOW STA Stop: 03/05/19 17:00 Last Admin: 03/05/19 17:00 Dose: 1,000 mg Documented by: [id number] Acetaminophen (Tylenol) 650 mg PO Q4H PRN PRN Reason: pain/fever Stop: 04/04/19 18:01 Last Admin: 03/06/19 15:40 Dose: 650 mg Documented by: [id number] Aspir[facility] ([facility]rin [facility]ab) [facility] [place]: 04/05/19 08:59 Last Admin: 03/06/19 08:26 Dose: 81 mg Documented by: [id number] Cetirizine HCl (Zyrtec) 10 [facility] [place] Stop: 04/05/19 08:59 Last Admin: 03/06/19 08:26 Dose: 10 mg Documented by: [id number] Doxazosin Mesylate (Cardura) 4 mg PO BID [facility] Stop: 04/04/19 20:59 Last Admin: 03/06/19 08:26 Dose: 4 mg Documented by: [id number] Admin: 03/05/19 20:17 Dose: 4 mg Documented by: [id number] Finasteride (Proscar) 5 mg PO [facility] Stop: 04/04/19 20:59 Last Admin: 03/05/19 20:18 Dose: 5 mg Documented by: [id number] Sodium Chloride (Nss 1000ml) 1,000 mls @ 125 mls/hr IV .Q8H [facility] Stop: 04/04/19 13:29 Last Infusion: 03/05/19 18:37 Dose: 0 mls/hr Documented by: [id number] Admin: 03/05/19 14:03 Dose: 125 mls/hr Documented by: [id number] Acetaminophen (Ofirmev) 1,000 mg in 100 mls @ 400 mls/hr IV NOW [facility] Stop: 03/05/19 16:22 Last Admin: 03/05/19 17:01 Dose: Not Given Documented by: [id number] Ioversol (Optiray 320 100ml) 119 ml IV ONCE PRN PRN Reason: Interaction Checking Stop: 03/09/19 14:33 Last Admin: 03/05/19 14:34 Dose: 119 ml Documented by: [id number] Pantoprazole Sodium (Protonix) 40 mg PO QAM [facility] Stop: 04/05/19 08:59 Last Admin: 03/06/19 08:26 Dose: 40 mg Documented by: [id number] Rosuvastatin Calcium (Crestor) 5 mg PO MoWeFr@0900 [facility] Stop: 04/05/19 08:59 Last Admin: 03/06/19 08:26 Dose: 5 mg Documented by: [id number] Zinc Sulfate (Zinc Sulfate) 220 mg PO [facility] Stop: 04/04/19 20:59 Last Admin: 03/05/19 20:18 Dose: 220 mg Documented by: [id number] Description This is a 21 electrode EEG with a single channel dedicated to limited EKG. The electrodes were placed in accordance with the International 10-20 system. History: 63 yo man admitted for transient confusion and starring episodes x5 Rx: n/a Start/Stop: 5:40am/6am Attending reading: Tricia Tomlinson EEG Description: EEG background: Background was low voltage with intermixed alpha and theta rhythm. No well formed posterior dominant rhythm was observed. The EEG is continuous. There is variability and reactivity present. Activation and reactivity: Photic stimulation performed without any abnormalities noted. No photic driving observed. Hyperventilation was not performed. Sleep: Patient was drowsy during most of the record but did not enter higher levels of sleep. Epileptiform discharges: No epileptiform discharges were observed. Rhythmic and periodic patterns: None Seizures: None Impression: This was a normal drowsy EEG. No seizures or epileptiform discharges were seen.
--- NOTE | 2019-03-07 11:05 | Emergency Department Note ---
Entered by Tiffany Esquivel acting as a scribe for Karen Palafox DO History of Present Illness General Chief complaint: Neuro Symptoms/Deficit Stated complaint: MEMORY LOSS,DOESNT REMEMBER EVENTS,HEADACHE Time Seen by Provider: 03/05/19 13:11 Source: patient History of Present Illness Provider complaint: Neuro Symptoms/Deficit Onset (ago): hour(s) 3 Location: head Maximum Pain Intensity: 4 Relieved By: + none Exacerbated By: + none Associated symptoms: + confusion, + headaches and + other (Memory loss) The patient is a 63 year old male who presents to the Emergency Room with complaints of neuro symptoms/deficit that began 3 hours ago. The patient's notes that he went to camp and does not remember leaving but does remember going to the post office. He doesn't remember coming home. The patient's notes that when the patient got home he sat down in a chair and zoned out 5 times in a half hour period. According to the patient's the patient would stare off for about a minute, come to, and ask if he was asleep. The patient notes that he does remember sitting in the chair. The patient states that his symptoms are not relieved nor exacerbated by anything specific. The patient reports experiencing a dull headache "all over" and notes that he does not get headaches that often. Additionally, the patient reports experiencing confusion and memory loss. The patient denies any recent changes in medication. Pt states he feels in his normal state of health at this time. states during these episodes she didn't notice any tremors/shaking, no color change or breathing difficulty. No hx of seizures in him or family. Home Medications Home Medications Medication Instructions Recorded Confirmed Type cholecalciferol (vitamin D3) 25 1,000 units PO QAM 08/29/18 03/05/19 History mcg (1,000 unit) capsule doxazosin 4 mg tablet 4 mg PO BID #180 tab 08/29/18 03/05/19 Rx zinc 50 mg tablet 50 mg PO HS 08/29/18 03/05/19 History cetirizine 10 mg tablet 10 mg PO QAM tab 10/11/18 03/05/19 History lactobacillus combination no.8 1 tab PO UD 11/21/18 03/05/19 History aspirin [Adult Low Dose Aspirin] 81 mg PO QAM 03/05/19 03/05/19 History finasteride 5 mg PO HS 03/05/19 03/05/19 History multivitamin 1 tab PO QAM 03/05/19 03/05/19 History omeprazole 20 mg PO QAM 03/05/19 03/05/19 History rosuvastatin 5 mg PO [id number]@0800 03/05/19 03/05/19 History Allergies Allergy/AdvReac Type Severity Reaction Status Date / Time bee venom protein (honey bee) Allergy Severe Anaphylaxis Verified 03/05/19 14:44 Horse/Equine Containing Allergy Unknown RASH/GENERALIZED Verified 03/05/19 14:41 Products SWELLING tetanus toxoid, adsorbed Allergy Unknown RASH/GENERALIZED Verified 03/05/19 14:41 SWELLING Past Med/Surg History Medical History Acid reflux Allergic rhinitis BPH (benign prostatic hyperplasia) CAD (coronary artery disease) Cervical stenosis of spinal canal Dyslipidemia History of hepatitis History of renal calculi Hyperlipidemia Hypertension Lumbar stenosis with neurogenic claudication Obstructive sleep apnea Surgical History H/O spinal fusion (2015) History of inguinal hernia repair History of knee surgery History of uvulectomy (2000) S/P cervical spinal fusion (07/10/17) S/P decompression of ulnar nerve L elbow S/P fusion of thoracic spine (2011) S/P lumbar fusion (2003) S/P nasal septoplasty S/P tonsillectomy and adenoidectomy (2000) Family History Father Myocardial infarction, Onset Age: 60 Heart disease S/P CABG x 4 Mother Myocardial infarction, Onset Age: 60 Heart disease S/P CABG x 4 Diabetes Kidney disease Brother Anxiety Esophageal cancer Pacemaker Social History Preferred Language: Turkmen Communication Ability: Effective Visual Impairment: No Limitations Hearing Ability: Normal Rn Gynecology Required: No Beliefs That Will Affect Care: None marital status: Current Living Situation: Spouse current occupational status: employed current occupation: school cook Feels Safe at Home: Yes Smoking Status: Former smoker Tobacco Type: cigarettes and smokeless tobacco ; Age Started Using Tobacco: 14 ; Age Quit Using Tobacco: 28 ; packs per day: 1 ; Second Hand Exposure: Yes ; Hx Alcohol Use: Yes Alcohol type: beer Alcohol Intake Frequency: Weekly Hx Substance Use: No Dental Care, Regularly: Yes Physical Activity Frequency: 1-2 Times per Week Seatbelt Use: always Review of Systems See HPI for pertinent positives & negatives. and A total of 10 systems reviewed and were otherwise negative Physical Exam Vital Signs Vital Signs - 24 hr 03/05/19 12:55 03/05/19 13:19 03/05/19 13:44 Temperature 36.8 C Temperature Source Oral Pulse Rate 73 75 Pulse Rate from SpO2 Sensor 74 Respiratory Rate 16 21 Respiratory Effort / Characteristics Non-Labored Respiratory Depth Normal Respiratory Pattern Regular Blood Pressure 172/114 H 155/97 H Blood Pressure Mean 133 114 Blood Pressure Position Sitting Pulse Oximetry 98 96 Oxygen Delivery Method Room Air Room Air Fraction of Inspired Oxygen 97 Sepsis Recent Fever Within 48 Hours No Sepsis New/Unexplained Change in Mental Status No Sepsis Action Taken by Nursing No Action Required 03/05/19 14:44 03/05/19 14:45 Temperature Temperature Source Pulse Rate 73 88 Pulse Rate from SpO2 Sensor 82 Respiratory Rate 21 Respiratory Effort / Characteristics Respiratory Depth Respiratory Pattern Blood Pressure Blood Pressure Mean Blood Pressure Position Pulse Oximetry 98 Oxygen Delivery Method Fraction of Inspired Oxygen Sepsis Recent Fever Within 48 Hours Sepsis New/Unexplained Change in Mental Status Sepsis Action Taken by Nursing GENERAL: alert, well appearing, well nourished, no distress, non-toxic EYE EXAM: normal conjunctiva, PERRL and EOM's grossly intact, no nystagmus OROPHARYNX: no exudate, no erythema, lips, buccal mucosa, and tongue normal and mucous membranes are moist NECK: supple, no nuchal rigidity, no adenopathy, non-tender LUNGS: Clear to auscultation. Normal chest wall mechanics, no w/r/r HEART: no murmurs, S1 normal and S2 normal ABDOMEN: abdomen soft, non-tender, normo-active bowel sounds, no masses, no rebound or guarding. BACK: Back is symmetrical on inspection and there is no deformity, no midline tenderness, no CVA tenderness. SKIN: no rashes and no bruising UPPER EXTREMITIES: upper extremities are grossly normal. FROM, nml pulses b/l. Nml sensory exam b/l. LOWER EXTREMITIES: No pitting edema. FROM, nml pulses b/l. Nml sensory exam b/l. NEURO EXAM: Normal sensorium, cranial nerves II-XII intact, normal speech, no weakness of arms, no weakness of legs. No drift. Finger to nose intact. Gross sensation intact. Course Course 1312: Past medical records reviewed. The patient was evaluated in room B03B. A complete history and physical exam was performed. 1533: I reevaluated and discussed the test results with the patient. The patient has had no recurrent episodes and I will discuss with neurology. 1540: I spoke with Dr. Tomlinson- Neurology about the patient's case and she says we should admit him. She also asked that we ordered an MR brain without contrast and she will see him in consult. 1605: I spoke with Dr. Sigrid Stewart- Hospitalist about the patient's case and she will accept the patient for further evaluation. Administered Medications Discontinued Medications Acetaminophen (Tylenol) Confirm Administered Dose 1,000 mg .ROUTE .STK-MED ONE Stop: 03/05/19 16:51 Last Admin: 03/05/19 17:00 Dose: Not Given Documented by: [id number] Acetaminophen (Tylenol) 1,000 mg PO NOW STA Stop: 03/05/19 17:00 Last Admin: 03/05/19 17:00 Dose: 1,000 mg Documented by: [id number] Acetaminophen (Tylenol) 650 mg PO Q4H PRN PRN Reason: pain/fever Stop: 04/04/19 18:01 Last Admin: 03/06/19 15:40 Dose: 650 mg Documented by: [id number] Aspir[facility] ([facility]rin [facility]ab) [facility] Stop: 04/05/19 08:59 Last Admin: 03/06/19 08:26 Dose: 81 mg Documented by: [id number] Cetirizine HCl (Zyrtec) 10 mg PO QAM [facility] Stop: 04/05/19 08:59 Last Admin: 03/06/19 08:26 Dose: 10 mg Documented by: [id number] Doxazosin Mesylate (Cardura) 4 mg PO BID [facility] Stop: 04/04/19 20:59 Last Admin: 03/06/19 08:26 Dose: 4 mg Documented by: [id number] Admin: 03/05/19 20:17 Dose: 4 mg Documented by: [id number] Finasteride (Proscar) 5 mg PO HS [facility] Stop: 04/04/19 20:59 Last Admin: 03/05/19 20:18 Dose: 5 mg Documented by: [id number] Sodium Chloride (Nss 1000ml) 1,000 mls @ 125 mls/hr IV .Q8H [facility] Stop: 04/04/19 13:29 Last Infusion: 03/05/19 18:37 Dose: 0 mls/hr Documented by: [id number] Admin: 03/05/19 14:03 Dose: 125 mls/hr Documented by: [id number] Acetaminophen (Ofirmev) 1,000 mg in 100 mls @ 400 mls/hr IV NOW STA Stop: 03/05/19 16:22 Last Admin: 03/05/19 17:01 Dose: Not Given Documented by: [id number] Ioversol (Optiray 320 100ml) 119 ml IV ONCE PRN PRN Reason: Interaction Checking Stop: 03/09/19 14:33 Last Admin: 03/05/19 14:34 Dose: 119 ml Documented by: [id number] Pantoprazole Sodium (Protonix) [facility] Stop: 04/05/19 08:59 Last Admin: 03/06/19 08:26 Dose: 40 mg Documented by: [id number] Rosuvastatin Calcium (Crestor) 5 mg PO MoWeFr@0900 [facility] Stop: 04/05/19 08:59 Last Admin: 03/06/19 08:26 Dose: 5 mg Documented by: [id number] Zinc Sulfate (Zinc Sulfate) [address] [facility] Stop: 04/04/19 20:59 Last Admin: 03/05/19 20:18 Dose: 220 mg Documented by: [id number] Medical Decision Making Differential Diagnosis Differential Diagnosis includes but is not limited to ischemic Stroke, hemorrhagic stroke, bells palsy, mass, neoplasm, migraine headache, seizure, subarachnoid hemorrhage, TIA, and transient global amnesia. Medical Records Attestation: I reviewed the patient's medical records. Home Medications Current Medication List: was personally reviewed by me Laboratory Data Attestation: I reviewed the patient's lab results. Result diagrams: 03/05/19 13:38 03/05/19 13:38 Lab Results 03/05/19 03/05/19 03/05/19 Range/Units 13:38 13:38 13:38 WBC 4.37 L (4.8-10.8) K/uL RBC 4.44 L (4.7-6.1) M/uL Hgb 13.7 L (14.0-18.0) g/dL Hct 39.8 L (42-52) % MCV 89.6 (80-100) fL MCH 30.9 (25-34) pg MCHC 34.4 (32-36) g/dL RDW Std Deviation 43.6 (36.4-46.3) fL RDW Coeff of Yeimi 13.2 (11.5-14.5) % Plt Count 206 (130-400) K/uL MPV 9.1 (7.4-10.4) fL Immature Gran % (Auto) 0.2 % Neut % (Auto) 61.1 % Lymph % (Auto) 28.4 % Ralls % (Auto) 7.1 % Eos % (Auto) 2.7 % Baso % (Auto) 0.5 % Immature Gran # (Auto) 0.01 (0.00-0.02) K/uL Neut # (Auto) 2.67 (1.4-6.5) K/uL Lymph # (Auto) 1.24 (1.2-3.4) K/uL Ralls # (Auto) 0.31 (0.11-0.59) K/uL Eos # (Auto) 0.12 (0-0.5) K/uL Baso # (Auto) 0.02 (0-0.2) K/uL Sodium 140 (136-145) mmol/L Potassium 4.0 (3.5-5.1) mmol/L Chloride 108 H (98-107) mmol/L Carbon Dioxide 27 (21-32) mmol/L Anion Gap 5.0 (3-11) BUN 11 (7-18) mg/dl Creatinine 1.11 (0.6-1.4) mg/dl Est Cr Clr Drug Dosing 74.3 ml/min Est GFR ( Amer) 80.3 Est GFR (Non-Af Amer) 69.3 BUN/Creatinine Ratio 10.2 (10-20) Glucose 100 H (70-99) mg/dl Calcium 9.1 (8.5-10.1) mg/dl Phosphorus 3.4 (2.5-4.9) mg/dl Magnesium 2.1 (1.8-2.4) mg/dl Total Bilirubin 0.3 (0.2-1) mg/dl AST 19 (15-37) U/L ALT 29 (12-78) U/L Alkaline Phosphatase 81 (45-117) U/L Troponin I < 0.015 (0-0.045) ng/ml NT-Pro-B Natriuret Pep 17 (0-900) pg/ml Total Protein 7.5 (6.4-8.2) gm/dl Albumin 3.9 (3.4-5.0) gm/dl Globulin 3.6 (2.5-4.0) gm/dl Albumin/Globulin Ratio 1.1 (0.9-2) Lipase 71 L (73-393) U/L TSH 2.150 (0.300-4.500) uIu/ml Urine Color Urine Appearance (Clear) Urine pH (4.5-7.5) Ur Specific [place] (1.000-1.030) Urine Protein (Negative) Urine Glucose (UA) (Negative) Urine Ketones (Negative) Urine Blood (Negative) Urine Nitrite (Negative) Urine Bilirubin (Negative) Urine Urobilinogen (Negative) Ur Leukocyte Esterase (Negative) Urine Opiates Screen (Neg) Ur Methadone, Qual (Neg) Urine Barbiturates (Neg) Ur Phencyclidine (PCP) (Neg) U Amphetamin/Meth Scrn (Neg) MDMA (Ecstasy) Screen (Neg) U Benzodiazepines Scrn (Neg) Ur Cocaine Metabolite (Neg) U Marijuana (THC) Screen (Neg) 03/05/19 03/05/19 Range/Units 13:40 13:40 WBC (4.8-10.8) K/uL RBC (4.7-6.1) M/uL Hgb (14.0-18.0) g/dL Hct (42-52) % MCV (80-100) fL MCH (25-34) pg MCHC (32-36) g/dL RDW Std Deviation (36.4-46.3) fL RDW Coeff of Yeimi (11.5-14.5) % Plt Count (130-400) K/uL MPV (7.4-10.4) fL Immature Gran % (Auto) % Neut % (Auto) % Lymph % (Auto) % Ralls % (Auto) % Eos % (Auto) % Baso % (Auto) % Immature Gran # (Auto) (0.00-0.02) K/uL Neut # (Auto) (1.4-6.5) K/uL Lymph # (Auto) (1.2-3.4) K/uL Ralls # (Auto) (0.11-0.59) K/uL Eos # (Auto) (0-0.5) K/uL Baso # (Auto) (0-0.2) K/uL Sodium (136-145) mmol/L Potassium (3.5-5.1) mmol/L Chloride (98-107) mmol/L Carbon Dioxide (21-32) mmol/L Anion Gap (3-11) BUN (7-18) mg/dl Creatinine (0.6-1.4) mg/dl Est Cr Clr Drug Dosing ml/min Est GFR ( Amer) Est GFR (Non-Af Amer) BUN/Creatinine Ratio (10-20) Glucose (70-99) mg/dl Calcium (8.5-10.1) mg/dl Phosphorus (2.5-4.9) mg/dl Magnesium (1.8-2.4) mg/dl Total Bilirubin (0.2-1) mg/dl AST (15-37) U/L ALT (12-78) U/L Alkaline Phosphatase (45-117) U/L Troponin I (0-0.045) ng/ml NT-Pro-B Natriuret Pep (0-900) pg/ml Total Protein (6.4-8.2) gm/dl Albumin (3.4-5.0) gm/dl Globulin (2.5-4.0) gm/dl Albumin/Globulin Ratio (0.9-2) Lipase (73-393) U/L TSH (0.300-4.500) uIu/ml Urine Color Yellow Urine Appearance Clear (Clear) Urine pH 8.0 H (4.5-7.5) Ur Specific [place] 1.009 (1.000-1.030) Urine Protein Negative (Negative) Urine Glucose (UA) Negative (Negative) Urine Ketones Negative (Negative) Urine Blood Negative (Negative) Urine Nitrite Negative (Negative) Urine Bilirubin Negative (Negative) Urine Urobilinogen Negative (Negative) Ur Leukocyte Esterase Negative (Negative) Urine Opiates Screen Neg (Neg) Ur Methadone, Qual Neg (Neg) Urine Barbiturates Neg (Neg) Ur Phencyclidine (PCP) Neg (Neg) U Amphetamin/Meth Scrn Neg (Neg) MDMA (Ecstasy) Screen Neg (Neg) U Benzodiazepines Scrn Neg (Neg) Ur Cocaine Metabolite Neg (Neg) U Marijuana (THC) Screen Neg (Neg) Imaging Data Radiologist's Impression: Radiology results as stated below per my review and the radiologist's interpretation: XR chest 1V portable CLINICAL HISTORY: ams, htn dyspnea COMPARISON STUDY: 11/24/2015 FINDINGS: The bones soft tissues and hemidiaphragms are normal. The cardiomediastinal silhouette is normal. The lungs are clear. The pulmonary vasculature is normal. IMPRESSION: Negative chest. ACT 112: Negative or not required by law. The above report was generated using voice recognition software. It may contain grammatical, syntax or spelling errors. Electronically signed by: Willy Ospina M.D. 03/05/2019 2:05 PM CTA ANGIOGRAPHY OF THE HEAD CLINICAL HISTORY: Headache. Hypertension. Altered mental status. COMPARISON STUDY: Head CT December 20, 2013. TECHNIQUE: Helical axial images of the head were obtained following uneventful intravenous administration of 119 cc of Optiray 320. Automated exposure control was utilized for the study. A dose lowering technique was utilized adhering to the principles of ALARA. FINDINGS: Please note that the CT of the neck will be reported separately. No acute intracranial hemorrhage, midline shift or mass effect is present. Ve ntricular system is normal. The basilar cisterns are patent. There are no extra axial collections. The bilateral M1, M2, A1 and A2 segments are patent. There is no intraluminal thrombus. No dissection or abrupt vessel cut off is identified. No significant stenosis is noted within the major intracranial vessels. There is no significant calvarial abnormality. Visualized portions of the sinuses and m astoid air cells are clear. IMPRESSION: Unremarkable CTA of the head. ACT 112: Negative or not required by law. Electronically signed by: Lionel Melchor M.D. 03/05/2019 2:57 PM NECK CTA HISTORY: Altered Mental status. Headache. Hypertension. TECHNIQUE: Multiaxial CT images of the neck were performed following the intravenous administration of contrast to evaluate the major cervical vessels. Maximum intensity projection images were also obtained. All measurements were calculated based on NASCET criteria. A dose lowering technique was utilized adhering to the principles of ALARA. COMPARISON STUDY: None. FINDINGS: The aortic arch and proximal great vessels are widely patent. There is no significant stenosis, occlusion, or dissection identified within the bilateral common carotid, internal carotid, or vertebral arteries. Anterior cervical spinal fusion hardware is noted. Mild calcified plaque within the right carotid bifurcation. IMPRESSION: No significant stenosis, occlusion, or dissection identified within the carotid or vertebral arteries. ACT 112: Negative or not required by law. Electronically signed by: Aleksandr Coronado M.D. 03/05/2019 3:[address] head/brain wo con CT DOSE: 1487.32 mGy.cm HISTORY: Mental status change gamino, htn, ams TECHNIQUE: Multiaxial CT images of the head were performed without the use of intravenous contrast. A dose lowering technique was utilized adhering to the principles of ALARA. Comparison: 12/20/2013 Findings: The paranasal sinuses and mastoid air cells are clear. The calvarium and skull base are intact. The ventricles and sulci are within normal limits. There is no mass, hematoma, midline shift, or acute infarct. Impression: No acute intracranial abnormality. ACT 112: Negative or not required by law. The above report was generated using voice recognition software. It may contain grammatical, syntax or spelling errors. Electronically signed by: Willy Ospina M.D. 03/05/2019 2:45 PM ECG Data Indication: + other (Neuro Symptoms/Deficit) Rate (beats per minute): 66 Rhythm: + sinus rhythm ECG Findings: + Other (Normal axis, normal intervals, no ischemia, low voltage throughout ) Blood Pressure Blood Pressure Findings: Elevated blood pressure Blood Pressure Disposition: further management by hospitalist MDM Narrative Pt here well appearing after atypical series of brief transient AMS at home. No recurrent episodes while in the ER. Labs and imaging reassuring. VS stable. Case discussed with neurology floor covering contractor who recommended inpatient mgmt and treatment. They also requested MR brain wo contrast. Pt made aware of all results and discussion with neurology and was in agreement with the plan. Case discussed with hospitalist for additional mgmt. No ectopy or dysrhythmia noted on tele. Impression & Plan AMS (altered mental status), Hypertension, Headache Discharge Plan Visit Data *Final* Discharge Date/Time: 03/05/19 17:47 Chief Complaint: Neuro Symptoms/Deficit Stated Complaint: MEMORY LOSS,DOESNT REMEMBER EVENTS,HEADACHE ED Provider: Karen Palafox Discharge Problem: AMS (altered mental status), Hypertension, Headache Patient Disposition: Admitted As Inpatient Discharge Instructions Interventions: ED Discharge Assessment Last Done: 03/05/19 17:47 Discharge Problem: AMS (altered mental status) Qualifiers: Altered mental status type: unspecified Qualified Code(s): R41.82 - Altered mental status, unspecified Hypertension Qualifiers: Hypertension type: unspecified Qualified Code(s): I10 - Essential (primary) hypertension Headache Qualifiers: Headache type: unspecified Headache chronicity pattern: unspecified pattern Intractability: not intractable Qualified Code(s): R51 - Headache The scribe's documentation has been prepared under my direction and personally reviewed by me in its entirety. I confirm that the note above accurately reflects all work, treatment, procedures, and medical decision making performed by me.
--- NOTE | 2019-03-12 14:27 | Discharge Summary ---
Date of Service March 06, 2019 Admission HPI Per Admitting Provider Bryce Yeh is a pleasant 63yo C male with history of HTN/HLP/CAD/GERD presenting with AMS. Patient woke up this morning in his usual state of health. He went outside, drove to get gas, went up to his camp and put out a salt lick for the deer then went to the post office. When he returned home his noted that he wasn't acting himself. He had no recollection of going to the post office or of some of the day's events. His reports that between 10 and 10:30 he had at least 5 "staring episodes". Patient was minimally responsive during these episodes, staring at the TV afterwards he would jerk awake and ask his if he fell asleep. Additionally he is complaining of a dull frontal headache, as well as heaviness and slight numbness of his left leg. No additional complaints at this time. Specifically, patient denies visual changes, neck pain, chest pain, palpitations, cough, SOB, wheeze, nausea/vomiting/diarrhea or constipation. He feels that his mind is clearer now and he is near baseline. Principal Diagnosis sleep deprivation Discharge Exam General: patient resting comfortably, NAD, non-toxic in appearance, AA&O x 4 Skin: warm, dry, intact, no rashes or lesions HEENT: NC/AT, PERRL, EOMI, anicteric sclera, conjunctiva without injection, external ear normal to inspection and nontender, nares patent, moist mucus membranes, dentition intact, no oropharyngeal lesions, neck supple, trachea midline, no LAD, no thyromegaly, no JVD Heart: +S1/S2, regular, no m/r/g Lungs: equal air entry bilaterally, no rales/rhonchi/wheezes Abd: +BS, soft, mildly distended and tympanic to percussion, diffusely tender with deep palpation, no rebound/guarding/peritoneal signs, no masses/or ganomegaly/ascites Ext: warm, 2+ pulses in UE/LE bilaterally, no clubbing/cyanosis or edema Neuro: nonfocal, patient AA&O x 4, speech intact, no facial droop, CN II - XII grossly intact Discharge Data Allergies Allergy/AdvReac Type Severity Reaction Status Date / Time bee venom protein (honey bee) Allergy Severe Anaphylaxis Verified 03/11/19 09:02 Horse/Equine Containing Allergy Unknown RASH/GENERALIZED Verified 03/11/19 09:02 Products SWELLING tetanus toxoid, adsorbed Allergy Unknown RASH/GENERALIZED Verified 03/11/19 09:02 SWELLING Consultations 03/05/19 16:08 ED Decision to Admit Stat 03/05/19 18:02 Consult Neurology Routine Ordered Studies 03/05/19 13:23 CT angio head w con Stat CT angio neck with con Stat 03/05/19 13:24 CT head/brain wo con Stat 03/05/19 15:56 MR brain wo con Stat 03/05/19 18:02 US venous doppler LE RT Routine Hospital Course (1) AMS (altered mental status): Etiology uncertain. CVA/TIA vs seizure. Also consider transient arrhythmia, less likely hypoglycemia or medication effects -Observation to medical floor with telemetry -MRI unremarkable -EEG ordered -Neuro checks -Neurology consultation appreciated -Seizure precautions -Continue ASA and Rosuvastatin Appreciate input from Neuro: (Bold): no signs of stroke on imaging (NIHSS 0 on examination today). Ddx includes possible seizure in the setting of sleep deprivation vs transient hypercarbia from not using his CPAP vs sleep deprivation/recent stressors causing transient memory loss. Doesn't quite fit with transient global amnesia. - as no clear seizure focus, normal EEG and not clearly a seizure by semiology, do not need to start AEDs at this time - he will follow up in neurology clinic in 4-6 weeks - he and his was advised to call the office should he have another event before his follow up appointment and to record the event as well. We will likely recommend referral to the EMU at that time for spell classification and starting an AED if further similar events occur in the future. (2) Hypertension: Currently not on antihypertensive agents -Continue to monitor (3) Headache: Improved, mild. Does not seem to be a migraine PATEL/complex migraine -Tylenol as needed (4) Dyslipidemia: Chronic. -Will increase Rosuvastatin to 5mg po daily from q M// (5) Obstructive sleep apnea: Patient does not use CPAP at home -CPAP qHS here -Encourage home use (6) BPH (benign prostatic hyperplasia): Chronic. No symptoms -Continue Finasteride 5mg po qHS (7) CAD (coronary artery disease): Chronic. Stable. No CP, no concern for acute ischemia -Continue ASA, Rosuvastatin (8) Acid reflux: Chronic. Stable -Continue Omeprazole 20mg po daily Total Time Total Time Spent Total Time Spent (In Minutes): 32 Total Time Includes: Examination of the Patient, Discharge Planning and Medication Reconciliation Discharge Plan Discharge Items Patient Disposition: Home - Self-Care Reason For Visit: SEIZURE VS TIA Discharge Diagnosis: change of mental status Activity: Resume your previous activity Non-emergency contact: Primary Care Provider Call non-emergency contact if: you have any medication questions Follow-up/Referrals: Trupti Reese DO [Primary Care Provider] - Diet: Heart Healthy Addtl Attending Provider Instructions: Recommend followup with Neuro Clinic in 4-6 weeks Pending Studies at Discharge: No Stand-Alone Forms: [facility] [place], Work/School Release (Inpt), Smoking Cessation Medications and DC Order Prescriptions: Continued doxazosin 4 mg tablet 4 mg PO BID Qty: 180 RF: 1 cholecalciferol (vitamin D3) 1,000 unit capsule 1,000 units PO QAM RF: 0 zinc 50 mg tablet 50 mg PO HS RF: 0 cetirizine [24Hour Allergy] 10 mg tablet 10 mg PO QAM RF: 0 lactobacillus combination no.8 1 tab PO UD RF: 0 multivitamin Tablet 1 tab PO QAM RF: 0 aspirin [Adult Low Dose Aspirin] 81 mg tablet,delayed release (DR/EC) 81 mg PO QAM RF: 0 omeprazole 20 mg capsule,delayed release(DR/EC) 20 mg PO QAM RF: 0 finasteride 5 mg tablet 5 mg PO HS RF: 0 rosuvastatin 10 mg tablet 5 mg PO MOWEFR@0800 RF: 0 Discharge Orders: Discharge Order (Routine); Ordered 03/06/19 Ordered By: German Lopez Admission Data Admit Date/Time: 03/05/19 16:45 Attending Provider: German Lopez Admit Provider: Sepideh Stewart Primary Care Provider: Trupti Reese Other Providers: Sepideh Stewart ; Tricia Tomlinson Other Interventions: Discharge Summary Assessment (RN) Last Done: 03/06/19 18:05 DC Date/Time DO NOT enter until pt leaves facility: 03/06/19 18:21 Coding Level of Care Code D/C Day Management >30 mins Diagnoses AMS (altered mental status) R41.82 Altered mental status type: unspecified Hypertension I10 Hypertension type: unspecified Headache R51 Headache chronicity pattern: unspecified pattern Headache type: unspecified Intractability: not intractable Dyslipidemia E78.5 Obstructive sleep apnea G47.33 BPH (benign prostatic hyperplasia) N40.0 Lower urinary tract symptom presence: symptoms absent CAD (coronary artery disease) I25.10 Coronary Disease-Associated Artery/Lesion type: [place] artery [place] vs. transplanted heart: [place] heart Associated angina: without angina Acid reflux K21.9
--- NOTE | 2019-03-21 11:30 | Coding Query ---
A supporting diagnosis is required for the test/procedure performed on this patient in order for us to be reimbursed by the patient's insurance. Please provide a supporting diagnosis for the following test/procedure listed below next to the test name along with your signature. *If there is no additional diagnosis for this patient that would support the following test/procedure please document that below next to the test/procedure. Test(s)/Procedure(s) that require a supporting diagnosis: Swelling/Pain in right calf * [id number] VENOUS DOPPLER LOWER EXT UNILA DIAGNOSIS: DATE OF SERVICE: 03/05/19 Provider Signature: Sepideh Stewart Date: ___26 Mar 2019____ Thank you Reed Ruiz Health Information Management Once completed, please kindly fax back to [phone] For questions please call [phone] ELENI
== END 2019-03-06 18:21 | disposition home or self-care (01) ==
LOC: ED 12:52 → 2N 12:52 → SUATTDRO 16:45 → 2N 17:47

== ENCOUNTER 2022-07-08 07:29 | Observation (INO) ==
--- NOTE | 2022-06-09 14:56 | PAT Medication Instructions ---
Medication Instructions Date of Service June 09, 2022 Home Medications Medication Instructions Recorded CPAP Machine #1 ea 05/16/19 CPAP Supplies #1 ea 05/16/19 rosuvastatin 10 mg tablet 10 mg PO HS #90 tabs 11/10/20 gabapentin 300 mg capsule 300 mg PO QID #120 caps 12/06/21 ipratropium bromide 21 mcg (0.03 2 spray intranasal BID #30 mL 04/11/22 %) nasal spray zinc 50 mg tablet 50 mg PO HS lactobacillus combination no.8 [Adult Probiotic] 1 tab PO HS aspirin 81 mg tablet,delayed release (Adult Low Dose Aspirin) 81 mg PO QAM finasteride 5 mg tablet 5 mg PO HS multivitamin 1 tab PO HS omeprazole 20 mg capsule,delayed release 20 mg PO QAM rosuvastatin 10 mg tablet 10 mg PO HS carboxymethylcellulose sodium 0.5 % eye drops in a dropperette 1 drp ophthalmic (eye) QID PRN Dry Eyes tumeric 100 mg-vishnu 150 mg-olive 50 mg-oreg 150 mg-caprylate capsule 1 cap PO HS acetaminophen 500 mg tablet (Tylenol Extra Strength) 100 mg PO QID prednisolone acetate 1 % eye drops,suspension 2 drp ophthalmic (eye) QID gabapentin 300 mg capsule 300 mg PO QID # ipratropium bromide 21 mcg (0.03 %) nasal spray 2 spray intranasal BID mirabegron 50 mg tablet,extended release 24 hr (Myrbetriq) 50 mg PO QAM tamsulosin 0.4 mg capsule 0.4 mg PO HS ASK your prescriber and surgeon aspirin 81 mg tablet,delayed release (Adult Low Dose Aspirin) 81 mg PO QAM STOP taking 2 weeks before surgery tumeric 100 mg-vishnu 150 mg-olive 50 mg-oreg 150 mg-caprylate capsule 1 cap PO HS DO NOT take the morning of surgery mirabegron 50 mg tablet,extended release 24 hr (Myrbetriq) 50 mg PO QAM Take morning of surgery With a small sip of water, OTHERWISE NOTHING TO EAT OR DRINK AFTER MIDNIGHT: omeprazole 20 mg capsule,delayed release 20 mg PO QAM carboxymethylcellulose sodium 0.5 % eye drops in a dropperette 1 drp ophthalmic (eye) QID PRN Dry Eyes (if needed) acetaminophen 500 mg tablet (Tylenol Extra Strength) 100 mg PO QID prednisolone acetate 1 % eye drops,suspension 2 drp ophthalmic (eye) QID gabapentin 300 mg capsule 300 mg PO QID ipratropium bromide 21 mcg (0.03 %) nasal spray 2 spray intranasal BID Take evening before surgery zinc 50 mg tablet 50 mg PO HS lactobacillus combination no.8 [Adult Probiotic] 1 tab PO HS finasteride 5 mg tablet 5 mg PO HS multivitamin 1 tab PO HS rosuvastatin 10 mg tablet 10 mg PO HS carboxymethylcellulose sodium 0.5 % eye drops in a dropperette 1 drp ophthalmic (eye) QID PRN Dry Eyes (if needed) acetaminophen 500 mg tablet (Tylenol Extra Strength) 100 mg PO QID prednisolone acetate 1 % eye drops,suspension 2 drp ophthalmic (eye) QID gabapentin 300 mg capsule 300 mg PO QID ipratropium bromide 21 mcg (0.03 %) nasal spray 2 spray intranasal BID tamsulosin 0.4 mg capsule 0.4 mg PO HS Other Notes If you have any questions please call us at [phone] or [phone] or [phone] or [phone]
--- NOTE | 2022-06-17 10:04 | Anesthesiology Consultation ---
Date of Service June 17, 2022 Assessment & Plan (1) Encounter for pre-operative examination: Chart Review Chart Review: Acceptable Risk for Surgery (pending PCP clearance (06/21/22) and cardio clearance (06/23/22)) and Patient seen in Pre Admission Testing - Awaiting PCP clearance (06/21/22) and cardio clearance 06/23/22 Per PAT appt on 06/17/22, patient denies any recent travel or large group activities. Pt is partially vaccinated for Covid. Will leave to surgeon's discretion if preop Covid testing needed. Educated on importance of using Covid precautions one week prior to surgery Teaching & Discussion Pre-Anesthesia Teaching/Discussion Notes: Instructed NPO after midnight before surgery,except medications with 15 cc of water. Medication instructions provided according to the PAT guidelines. History Surgery Operation Date: 07/08/22 09:35 Proposed Procedures p C3-C4 and C4-C5 Anterior Cervical Discectomy and Fusion, C5-C7 Hardware Removal - Jose Kyle DO Height/Weight Height: 5 ft 6 in Weight: 95.5 kg Allergies Allergy/AdvReac Type Severity Reaction Status Date / Time bee venom protein (honey bee) Allergy Severe Anaphylaxis Verified 06/09/22 12:50 cat dander Allergy Severe Difficulty Verified 06/09/22 12:50 Breathing Horse/Equine Containing Allergy Unknown RASH/GENERALIZED Verified 06/09/22 12:50 Products SWELLING tetanus toxoid, adsorbed Allergy Unknown RASH/GENERALIZED Verified 06/09/22 12:50 SWELLING Medications Home Medications Medication Instructions Recorded Confirmed Last Taken zinc 50 mg tablet 50 mg PO HS 08/29/18 06/09/22 11/07/21 lactobacillus combination no.8 1 tab PO HS 11/21/18 06/09/22 11/07/21 [Adult Probiotic] aspirin 81 mg tablet,delayed 81 mg PO QAM 03/05/19 06/09/22 11/07/21 release (Adult Low Dose Aspirin) finasteride 5 mg tablet 5 mg PO HS 03/05/19 06/09/22 11/07/21 multivitamin 1 tab PO HS 03/05/19 06/09/22 11/07/21 CPAP Machine #1 ea 05/16/19 12/06/21 Unknown CPAP Supplies #1 ea 05/16/19 12/06/21 Unknown omeprazole 20 mg capsule,delayed 20 mg PO QAM 07/28/20 06/09/22 04/18/22 05:30 release rosuvastatin 10 mg tablet 10 mg PO HS #90 tabs 11/10/20 06/09/22 11/07/21 carboxymethylcellulose sodium 0.5 1 drp ophthalmic (eye) QID PRN Dry 07/09/21 06/09/22 11/07/21 % eye drops in a dropperette Eyes tumeric 100 mg-vishnu 150 mg-olive 1 cap PO HS 07/09/21 06/09/22 11/07/21 50 mg-oreg 150 mg-caprylate capsule acetaminophen 500 mg tablet 100 mg PO QID 07/13/21 06/09/22 11/07/21 (Tylenol Extra Strength) prednisolone acetate 1 % eye 2 drp ophthalmic (eye) QID 11/18/21 06/09/22 Unknown drops,suspension gabapentin 300 mg capsule 300 mg PO QID #120 caps 12/06/21 06/09/22 04/18/22 05:30 ipratropium bromide 21 mcg (0.03 2 spray intranasal BID #30 mL 04/11/22 06/09/22 Unknown %) nasal spray mirabegron 50 mg tablet,extended 50 mg PO QAM 06/09/22 06/09/22 Unknown release 24 hr (Myrbetriq) tamsulosin 0.4 mg capsule 0.4 mg PO HS 06/09/22 06/09/22 Unknown Past Medical History Medical History Acid reflux Well controlled and stable with Omeprazole BPH (benign prostatic hyperplasia) CAD (coronary artery disease) follows with Dr. Mishra Minimal CAD (2000) per cardio records Cervical stenosis of spinal canal Detached retina, left 2020 with surgical repair Dyslipidemia Erectile dysfunction History of hepatitis During childhood - thinks Hep A- treated - no residual issues History of renal calculi No current issues Hx MRSA infection several yrs ago to thumb > resolved Hypertension Lumbar stenosis with neurogenic claudication Mild obstructive sleep apnea cpap Nocturnal hypoxemia No oxygen - only CPAP Seasonal allergies Exercise / Class Metabolic Activity II 4-5 Yardwork/Stairs/Walk up hill (one flight of stairs- no chest pain or SOB ) Past Family History Family History Father Myocardial infarction, Onset Age: 60 Heart disease S/P CABG x 4 Mother Myocardial infarction, Onset Age: 60 Heart disease S/P CABG x 4 Diabetes Kidney disease Brother Anxiety Esophageal cancer Pacemaker Denies family history of Ovarian cancer Prostate cancer Breast cancer Colorectal cancer Past Surgical History Surgical History H/O eye surgery (11/08/21) L eye lamellar keratectomy w/ EDTA chelation History of cardiac cath done due to strong family hx --no stents, no blockage found, [facility], unsure when, "many yrs ago" History of corneal transplant Around Mar 2022- following with Dr. Bocanegra History of esophagogastroduodenoscopy (EGD) History of inguinal hernia repair History of knee surgery right History of uvulectomy (2000) Hx of colonoscopy S/P cataract extraction bilat S/P cervical spinal fusion (07/10/17) hurts a lot when moving head up > turning to left makes left arm to fingers tingle S/P decompression of ulnar nerve L elbow S/P fusion of thoracic spine (2011) S/P lumbar fusion (2003) S/P nasal septoplasty S/P tonsillectomy and adenoidectomy (2000) Past Anesthesia History No Hx of Anesthesia Complications and No Family Hx of Anesthesia Complications History of PONV No Hx of PONV and No Hx of Motion Sickness Social History Smoking Status: Never smoker tobacco type: smokeless tobacco Do You Dip or Chew Tobacco: Yes (1 can/week - advised ) Smoking End Date: advised npo status Hx Alcohol Use: Yes Alcohol type: beer alcohol intake frequency: a few times a month Hx Substance Use: No substance use type: does not use Review of Systems Patient denies chest pain, shortness of breath, dyspnea on exertion, cough, wheezing, palpitations. No hx of seizures, stroke, VT. No hx of blood clots or blood transfusions Physical Exam Vital Signs VITALS BP 117/83 P 73 TEMP 98.2 SP02 95% RESP 16 Constitutional no acute distress ENMT Mouth: no TMJ clicking Thyromental Distance: > or= 3.5 Finger Breadths (3.5) Mallampati Class: I Top right front tooth capped Missing molars Neck + limited neck extension (significant) Respiratory normal respiratory effort; no respiratory distress Auscultation: lungs clear to auscultation bilaterally; no wheezes Cardiovascular Rate/Rhythm: regular rate and regular rhythm Heart Sounds: no murmur Vessels: no carotid bruit Musculoskeletal Spine: + pain with cervical ROM Extremities: extremities normal to inspection Psychiatric Orientation: alert Lab Results Anesthesia Preop Results Results Anesthesia Widget: WBC 5.47 K/ul (4.8-10.8) 06/17/22 Hgb 13.6 g/dl (14.0-18.0) L 06/17/22 Hct 39.5 % (42.0-52.0) L 06/17/22 Plt 233 K/uL (130-400) 06/17/22 Na 142 mmol/L (136-145) 06/17/22 K 4.5 mmol/L (3.5-5.1) 06/17/22 Cl 108 mmol/L (98-107) H 06/17/22 CO2 28 mmol/L (21-32) 06/17/22 BUN 22 mg/dl (6-23) 06/17/22 Creat 1.16 mg/dl (0.6-1.4) 06/17/22 Glucose Level 97 mg/dl (70-99(Fasting)) 06/17/22 PT 10.1 Seconds (9.0-12.0) 06/17/22 PTT 25.9 Seconds (21.0-31.0) 06/17/22 INR 0.9 (0.9-1.1) 06/17/22 Urine Color Yellow 06/17/22 Urine Appearance Clear (Clear) 06/17/22 Urine pH 6.5 (4.5-7.5) 06/17/22 Urine Specific [place] 1.028 (1.000-1.030) 06/17/22 Urine Protein Negative (Negative) 06/17/22 Urine Glucose (UA) Negative (Negative) 06/17/22 Urine Ketones Negative (Negative) 06/17/22 Urine Blood Negative (Negative) 06/17/22 Urine Nitrite Negative (Negative) 06/17/22 Urine Bilirubin Negative (Negative) 06/17/22 Urine Urobilinogen Negative (Negative) 06/17/22 Urine Leukocyte Esterase Negative (Negative) 06/17/22 Blood Type O Positive 06/17/22 Antibody Screen NEGATIVE 06/17/22 Testing Electrocardiogram Date: 06/17/22 SR with premature supraventricular complexes at 71bpm Otherwise normal EKG per cardio Chest X-Ray Date: 06/17/22 FINDINGS: Postoperative findings within the spine are incidentally noted. Lung volumes are normal. Lungs are clear. There is no pneumothorax or pleural effusion. Cardiac size is stable. Mediastinal contours are normal. There is no evidence for pulmonary edema. IMPRESSION: No acute cardiopulmonary findings. No change in appearance of the chest. Echocardiogram Date: 07/31/17 EF: 65-69% LV Function: normal RV mildly dilated No pericardial effusion There is increased tissue density in the region of the pericardium suggesting pericardial fat Stress Test Date: 06/26/17 Type: DSE Valvular Disease: no significant valvular disease Stress ECHO is negative for inducible ischemia Stress EKG response showed no evidence of ischemia No arrhythmias Normal HR and BP response for dobutamine infusion. Mild cLVH. Normal LV systolic function without regional wall motion abnormalities. EF 60-65%. Grade I DD RV cavity is moderately dilated. RV systolic function is normal as assessed by tricuspid annular plane systolic excursion. A trivial circumferential pericardial effusion is noted COVID-19 Risk Screen Screening Information COVID-19 Screen Date: 06/17/22 Exposure 21 Days Family/Household +COVID Last 21 Days: No Exposure 10 Days Any COVID Exposure Last 10 Days: No Symptoms Last 10 Days Experienced COVID Sx Last 10 Days: No + COVID 0-90 Days COVID + in Last 0-90 Days: No Risk Plan COVID Risk Plan: No Risk Identified Patient Education COVID Preop Screening Education Complete: Yes
[~2022-07-08 07:29] MED LIST changes: +ACETAMINOPHEN 500 MG TAB PO SCH; -ASPI81TA28 PO; -ATOR-26 PO; -CRD4 PO; +CeleBREX 200 MG CAP PO SCH; -DULO1CAP39 PO; -EPP3/2 IM; +GABAPENTIN 300 MG CAP PO SCH; -IBUP-1050 PO; -LINA1CAP PO; +LR 15ML/HR IV SCH; -MULT-506 PO; -OXYC1TAB3 PO; -POLY335019 PO; -PRLSR20 PO; -ZOLP10TA PO; -[UNRECOGNIZED DRUG - CODE] PO; +ceFAZolin 2000MG 2,000 MG/15 ML SYR IV SCH
[2022-07-08] MEDS ORDERED: DEXAMETHASONE SOD INJ 4 MG/ML VIAL ONE (08:50)
[2022-07-08] MEDS ORDERED: ROCURONIUM BROMIDE 10 MG/ML 5 ML VIAL IV ONE (08:50)
[2022-07-08] MEDS ORDERED: LIDOCAINE 2% 2 ML VIAL/AMP(20MG/ML) INFIL ONE (08:50)
[2022-07-08] MEDS ORDERED: PROPOFOL IV EMULSION 10 MG/ML 20 ML VIAL IV ONE (08:50)
[2022-07-08] MEDS ORDERED: MIDAZOLAM HCL 1 MG/ML 2ML VIAL ONE (08:50)
[2022-07-08] MEDS ORDERED: fentaNYL citrate PF 100 MCG/2 ML VIAL ONE (08:50)
[2022-07-08] MEDS ORDERED: ONDANSETRON INJ 2 MG/ML 2 ML VIAL ONE (08:50)
[2022-07-08] MEDS ORDERED: SUGAMMADEX SODIUM 200 MG/2 ML VIAL IV ONE (08:51)
[2022-07-08] MEDS ORDERED: ONDANSETRON INJ 2 MG/ML 2 ML VIAL IV PRN ×2 (09:07→13:42)
[2022-07-08] MEDS ORDERED: ePHEDrine sulfate 50 MG/ML AMP IV PRN (09:07)
[2022-07-08] MEDS ORDERED: PROMETHAZINE HCL 12.5 MG in SODIUM CHLORIDE 0.9% 50 ML IV PRN ×2 (09:07→13:42)
[2022-07-08] MEDS ORDERED: ATROPINE SULFATE 0.1 MG/ML 10ML SYR IV PRN (09:07)
--- NOTE | 2022-07-08 09:21 | History & Physical Bridge Note ---
Date of Service July 08, 2022 History & Physical Bridge Note I have examined the patient, reviewed the History & Physical and in the interval since the performance of the History & Physical I have noted the following changes of clinical significance: no changes noted
--- NOTE | 2022-07-08 09:23 | History & Physical Report ---
Date of Service July 08, 2022 Assessment & Plan (1) Cervical stenosis of spinal canal: Plan: C3-C4 and C4-C5 anterior cervical discectomy and fusion, C5-C7 hardware removal History of Present Illness Chief Complaint: Neck and arm pain Primary Care Provider: Trupti Reese DO This is a 67-year-old male well-known to me the presents with chronic persistent neck and arm pain after an extensive course of nonoperative care is here for surgical invention. Allergies Allergy/AdvReac Type Severity Reaction Status Date / Time bee venom protein (honey bee) Allergy Severe Anaphylaxis Verified 07/08/22 08:35 cat dander Allergy Severe Difficulty Verified 07/08/22 08:35 Breathing Horse/Equine Containing Allergy Unknown RASH/GENERALIZED Verified 07/08/22 08:35 Products SWELLING tetanus toxoid, adsorbed Allergy Unknown RASH/GENERALIZED Verified 07/08/22 08:35 SWELLING Home Medications Medication Instructions Recorded Confirmed Type zinc 50 mg tablet 50 mg PO HS 08/29/18 07/08/22 History lactobacillus combination no.8 1 tab PO HS 11/21/18 07/08/22 History [Adult Probiotic] aspirin 81 mg tablet,delayed 81 mg PO QAM 03/05/19 07/08/22 History release (Adult Low Dose Aspirin) finasteride 5 mg tablet (Proscar) 5 mg PO HS 03/05/19 07/08/22 History multivitamin 1 tab PO HS 03/05/19 07/08/22 History CPAP Machine #1 ea 05/16/19 06/23/22 Rx CPAP Supplies #1 ea 05/16/19 06/23/22 Rx omeprazole 20 mg capsule,delayed 20 mg PO QAM 07/28/20 07/08/22 History release carboxymethylcellulose sodium 0.5 1 drp ophthalmic (eye) QID PRN Dry 07/09/21 07/08/22 History % eye drops in a dropperette Eyes (Lubricant Eye Drops) tumeric 100 mg-vishnu 150 mg-olive 1 cap PO HS 07/09/21 07/08/22 History 50 mg-oreg 150 mg-caprylate capsule acetaminophen 500 mg tablet 1,000 mg PO QID 07/13/21 07/08/22 History (Tylenol Extra Strength) prednisolone acetate 1 % eye 2 drp ophthalmic (eye) QID 11/18/21 07/08/22 History drops,suspension ipratropium bromide 21 mcg (0.03 2 spray intranasal BID #30 mL 04/11/22 07/08/22 Rx %) nasal spray mirabegron 50 mg tablet,extended 50 mg PO QAM 06/09/22 07/08/22 History release 24 hr (Myrbetriq) tamsulosin 0.4 mg capsule 0.4 mg PO HS 06/09/22 07/08/22 History gabapentin 300 mg capsule 300 mg PO QID #120 caps 07/01/22 07/08/22 Rx rosuvastatin 10 mg tablet (Crestor) 10 mg PO HS 07/08/22 07/08/22 History Past Med/Surg History Medical History Acid reflux BPH (benign prostatic hyperplasia) CAD (coronary artery disease) Cervical stenosis of spinal canal Detached retina, left Dyslipidemia Erectile dysfunction History of hepatitis History of renal calculi Hx MRSA infection Hypertension Lumbar stenosis with neurogenic claudication Mild obstructive sleep apnea Nocturnal hypoxemia Seasonal allergies Surgical History H/O eye surgery (11/08/21) History of cardiac cath History of corneal transplant History of esophagogastroduodenoscopy (EGD) History of inguinal hernia repair History of knee surgery History of uvulectomy (2000) Hx of colonoscopy S/P cataract extraction S/P cervical spinal fusion (07/10/17) S/P decompression of ulnar nerve S/P fusion of thoracic spine (2011) S/P lumbar fusion (2003) S/P nasal septoplasty S/P tonsillectomy and adenoidectomy (2000) Family History Father Myocardial infarction, Onset Age: 60 Heart disease S/P CABG x 4 Mother Myocardial infarction, Onset Age: 60 Heart disease S/P CABG x 4 Diabetes Kidney disease Brother Anxiety Esophageal cancer Pacemaker Denies family history of Ovarian cancer Prostate cancer Breast cancer Colorectal cancer Social History Smoking Status: Never smoker Tobacco Type: Smokeless Tobacco (Dip or Chew) Age Started Using Tobacco: 14; packs per day: 1; Smoking End Date: advised npo status; Second Hand Exposure: No; Do You Dip or Chew Tobacco: Yes (1 can/week - advised ); Tobacco Cessation Education Requested by Patient: No Hx Alcohol Use: Yes Alcohol type: beer Alcohol Intake Frequency: 4 or More x per/Week Hx Substance Use: No Preferred Language: Czech Communication Ability: Effective Visual Impairment: No Limitations Hearing Ability: Normal Film Painter Required: No Beliefs That Will Affect Care: None marital status: Current Living Situation: Spouse current occupational status: employed current occupation: media center director school How many Children do You have: 5 Other Information That Helps Us Care for You: No Feels Safe at Home: Yes Safety Concerns: Feels Safe At This Time Childhood Exposure to Second-Hand Smoke: Yes Diet: regular Diet Comment: regular caffeine: Yes (coffee) during the past year weight has: remained stable Dental Care, Regularly: Yes Physical Activity Frequency: Daily Seatbelt Use: always Sunscreen Use: Yes Assistive Devices: Glasses Physical Exam Physical Exam: Patient is alert and oriented Heart regular rhythm Lungs clear Results & Data Results & Data Vital Signs (Past 12 Hours) Vital Signs Temp Pulse Resp BP Pulse Ox O2 Del Method 07/08/22 08:42 36.6 C 57 L 18 122/82 97 Room Air
[2022-07-08] MEDS ORDERED: ceFAZolin 330 MG/ML 1 GM VIAL ONE (09:42)
[2022-07-08] MEDS ORDERED: FLOSEAL HEMOSTATIC MATRIX 10ML TOP ONE (11:17)
--- NOTE | 2022-07-08 11:40 | Operative Report ---
Post Operative Report Pre & Post Diagnosis Operation Date: 07/08/22 09:35 Pre-Op Diagnosis: Spinal Stenosis, Cervical Region Post-Op Diagnosis: Spinal Stenosis, Cervical Region I identified the patient and participated in the time-out.: Yes Procedure Operation Date: 07/08/22 09:35 Actual Procedures 1. Anterior cervical discectomy with bilateral foraminotomies C3-C4 C4-C5. #2 intercept arthrodesis C3-C4 C4-C5. #3 placement of globus coalition cage 8 mm in height filled with I factor at C3-C4 C4-C5. Surgeon Jose Kyle, DO Negative Notcher Jc Wilkerson Estimated Blood Loss 10 Findings Consistent with Post-Op Diagnosis Specimens none Indications This is a 67-year-old male well-known to me the presents above-mentioned d iagnosis and failing since course of nonoperative care is here for surgical invention. Description of Procedure Patient was met with identified informed consent obtained. Patient was then taken to the operative suite underwent a patient placed in spine position the [place] table with head [place] head order. All bony prominences well-padded eyes inspected to ensure no external pressure placed upon the. This point the anterior cervical spine was prepped and draped in a sterile fashion. The assistance of fluoroscopy identified the C for vertebral body and a transverse incision was placed along the right anterior aspect of the cervical spine overlying this region. Blunt dissection with assistance of bipolar electrocautery to form down to expose the anterior cervical spine from C3-C5. Self-retaining retractors placed. Then performed a complete discectomy of C4-C5 out to the uncovertebral joints bilaterally. [place] distracting pins utilized to assist in visualization. Removed all posterior fibers longitudinal limit bilateral foraminotomies performed and an 8 mm coalition cage filled with I factor tapped in position. There is and screwed into place with fluoroscopic visualization. Then proceeded to C3-C4 and a complete discectomy performed out to the uncovertebral's bilaterally. [place] distracting pins again utilized. Removed all posterior annular fibers longitudinal limit bilateral foraminotomies performed. Endplates burred to subcortically bone and an 8 mm coalition cage with I factor tapped position and screwed into place. Incision was then copiously irrigated explored to ensure no damage to surrounding structures or remaining bleeding. 10 round GAGANDEEP drain inserted. The incision was then closed with 2 Vicryl in the fashion of 4 Monocryl for final skin closure. Steri-Strip sterile dressing placed. Patient awakened taken to PACU in stable condition. Please note spinal cord monitoring was utilized throughout the procedure no changes noted. Lastly Jc Wilkerson was present at the entire surgery and while the patient positioning complex portions of the surgery and final skin closure. I attest to the content of the Intraoperative Record and any orders documented therein. Any exceptions are noted below.
[2022-07-08] MEDS: fentaNYL citrate PF 100 MCG/2 ML VIAL IV PRN ×4 (11:58→12:24)
--- NOTE | 2022-07-08 12:06 | Fluoroscopy Report ---
FL cervical 2-3V CLINICAL HISTORY: C3-C5 ACDF C5-C7 HW REMOVAL COMPARISON STUDY: None. FLUOROSCOPY TIME: 7 seconds FLUOROSCOPY IMAGES: 2 Ka,r: 1.3 mGy FINDINGS: Anterior cervical discectomy and fusion noted from C3 through C5. There is also a prior ant erior cervical discectomy and fusion at C5-C7. The hardware appears intact. IMPRESSION: Fluoroscopic assistance as above. ACT 112: Negative or not required by law. Electronically signed by: Aleksandr Coronado M.D. 07/08/2022 12:04 PM
[2022-07-08] MEDS: HYDROmorphone INJ 2 MG/ML SYR/VIAL IV PRN ×2 (12:45→12:50)
--- NOTE | 2022-07-08 12:55 | Anesthesiology Progress Note ---
Date of Service July 08, 2022 Anesthesia Post Procedure Vital Signs Vital Signs: Temp Pulse Pulse Resp BP Pulse Ox O2 Del Method 07/08/22 12:50 76 12 154/91 H 100 Nasal Cannula 07/08/22 12:40 65 12 143/84 H 100 Nasal Cannula 07/08/22 12:30 90 12 141/87 H 100 Nasal Cannula 07/08/22 12:20 93 H 20 164/99 H 100 Oxymask 07/08/22 12:10 84 16 146/92 H 100 Oxymask 07/08/22 12:00 84 12 149/94 H 100 Oxymask 07/08/22 11:54 36.1 C L 84 16 156/89 H 100 Oxymask 07/08/22 08:42 36.6 C 57 L 18 122/82 97 Room Air O2 Flow Rate 07/08/22 12:50 2 07/08/22 12:40 4 07/08/22 12:30 4 07/08/22 12:20 2 07/08/22 12:10 13 07/08/22 12:00 13 07/08/22 11:54 13 07/08/22 08:42 Pain Intensity Neck: Pain Intensity: 5 Right Shoulder: Pain Intensity: 4 Transfer of Care Handoff Completed per policy Notes Mental Status: alert / awake / arousable and participated in evaluation Patient Amnestic to Procedure: Yes Nausea / Vomiting: adequately controlled Pain: adequately controlled Airway Patency, RR, SpO2: stable & adequate BP & HR: stable & adequate Hydration State: stable & adequate Anesthetic Complications: no major complications apparent
[2022-07-08] MEDS ORDERED: dexAMETHasone 8 MG in SYRINGE 0 ML IV PRN (13:42)
[2022-07-08] MEDS ORDERED: LORazepam 0.5 MG TAB PO PRN (13:42)
[2022-07-08] MEDS ORDERED: DO NOT ADMINISTER PNEUMOCOCCAL VACCINE PRN (13:42)
[2022-07-08] MEDS ORDERED: FAMOTIDINE 20 MG TAB PO PRN (13:42)
[2022-07-08] MEDS ORDERED: METOCLOPRAMIDE HCL INJ 5 MG/ML 2 ML VIAL IV PRN (13:42)
[2022-07-08] MEDS ORDERED: SOD PHOSPHATE/SOD BIPHOSPHATE ENEMA 132 ML BTL PR PRN (13:42)
[2022-07-08] MEDS ORDERED: DO NOT ADMINISTER FLU VACCINE PRN (13:42)
[2022-07-08] MEDS ORDERED: ALUMINUM/MAGNESIUM SUSP 30 ML UDC PO PRN (13:42)
[2022-07-08] MEDS ORDERED: ONDANSETRON 4 MG OD TAB PO PRN (13:42)
[2022-07-08] MEDS ORDERED: LORazepam 2 MG/1 ML VIAL IV PRN (13:42)
[2022-07-08] MEDS ORDERED: MAGNESIUM HYDROXIDE SUSP 30 ML UDC PO PRN (13:42)
[2022-07-08] MEDS ORDERED: bisacodyL 10 MG SUPP PR PRN (13:42)
[2022-07-08] MEDS ORDERED: HYDROmorphone INJ 0.5 MG/0.5 ML SYR IV PRN (13:42)
[2022-07-08] MEDS ORDERED: ACETAMINOPHEN 500 MG TAB PO PRN (13:42)
[2022-07-08] MEDS ORDERED: RACEPINEPHRINE 2.25% NEBU SOLN 0.5 ML VIAL INH PRN (13:42)
[2022-07-08] MEDS ORDERED: NALOXONE HCL 0.4 MG/1 ML VIAL/CARP IV PRN (13:42)
[2022-07-08] MEDS ORDERED: ACETAMINOPHEN 1,000 MG/100 ML VIAL IV PRN (13:42)
[2022-07-08] MEDS ORDERED: hydrOXYzine HCl 25 MG TAB PO PRN (13:42)
[2022-07-08] MEDS ORDERED: diphenhydrAMINE Capsule 25 MG CAP PO PRN (13:42)
[2022-07-08] MEDS ORDERED: HYDROmorphone INJ 1 MG/ML SYRINGE IV PRN (13:42)
[2022-07-08] MEDS ORDERED: traMADol HCL 50 MG TABLET PO PRN (13:42)
[2022-07-08] MEDS ORDERED: ARTIFICIAL TEARS OP PRN (13:48)
[2022-07-08] MEDS: LACTATED RINGER'S 1,000 ML IV SCH ×2 (13:53→20:46)
--- NOTE | 2022-07-08 14:02 | Hospitalist Consultation ---
Date of Consultation July 08, 2022 Assessment & Plan (1) Status post cervical spinal fusion: -Currently stable -No new focal neuro defects -Pain control, DVT PPX, perioperative abx, and IV fluids per the primary team -Will obtain am cbc, BMP, PT/INR, we will review -Currently stable on 2L NC, wean as able -Agree with restarting aspirin tomorrow if stable -Thank you for allowing us to participate in the care of this patient, reach out with any questions or concerns -Medicine will continue to follow (2) Nocturnal hypoxemia: -Hx of FIORDALIZA, typically uses HS CPAP -Will hold CPAP for now with recent neck surgery and C-collar in place (3) Benign localized prostatic hyperplasia with lower urinary tract symptoms (LUTS): -Continue flomax and proscar (4) Hypertension: -Stable off antihypertensives, continue to monitor (5) Dyslipidemia: -Continue crestor (6) CAD (coronary artery disease): -Non-obstructive CAD on heart cath in 2000 -Agree with restarting aspirin tomorrow if stable (7) Acid reflux: -Protonix and prn famotidine ordered by primary team Plan The patient was discussed with Dr. Daugherty at the time of the consult Supervising Physician Co-Signing Physician Notes I personally saw and examined the patient. I verified all savage points and agree with Earl Rosales PA-C with the following exceptions and/or additions: 67 year old POD #0 Anterior cervical discectomy,intercept arthrodesis and placement of globus coalition cage. EBL 10ml. Improvement of radicular pre- operative upper extremity pain. O/E HS RRR, no murmurs, Chest CTAB, Abdo DNT A/P VTE/Pain/bowel management per primary orthopedic team Minimal CAD - no urgency to restart aspirin, recommend delaying restarting this until discharge History of Present Illness Reason for Consultation: Post-op medical management Requesting Physician: Jose Kyle DO Attending Physician: Dr. Charly Daugherty History of Present Illness Bryce is a 67 year old male with a PMH significant for Hypertension, Hypercholesterolemia, Mild Concentric LVH, Minimal CAD on Cardiac Cath 2000, Obstructive Sleep Apnea, GERD, and Cervical Spinal Stenosis who presented to the [facility] OR on 07/08 for C3-C4 and C4-C5 Anterior Cervical Discectomy and Fusion, C5- C7 Hardware Removal, and Spinal Cord Monitoring with Dr. Kyle. Per review of vitals, the patient is currently stable on 2L NC post-op. Per the operative report, EBL was listed as "10 cc", and no intraoperative complications were listed. At the time of the exam the patient was sitting in bed in no acute distress. He is feeling well after the procedure. His neck pain is currently a 3/10. He denies any new neurological defects or symptoms, denies chest pain, SOB, abd pain, nausea, vomiting, diarrhea, dysuria, hematuria, and recent trauma. He confirms that he did not have NELA placement with his previous cath. He is not currently on antihypertensives. Please refer to Dr. Dauhgerty's attestation for any changes to the treatment plan Allergies Allergy/AdvReac Type Severity Reaction Status Date / Time bee venom protein (honey bee) Allergy Severe Anaphylaxis Verified 07/08/22 08:35 cat dander Allergy Severe Difficulty Verified 07/08/22 08:35 Breathing Horse/Equine Containing Allergy Unknown RASH/GENERALIZED Verified 07/08/22 08:35 Products SWELLING tetanus toxoid, adsorbed Allergy Unknown RASH/GENERALIZED Verified 07/08/22 08:35 SWELLING Home Medications Medication Instructions Recorded Confirmed Type zinc 50 mg tablet 50 mg PO HS 08/29/18 07/08/22 History lactobacillus combination no.8 1 tab PO HS 11/21/18 07/08/22 History [Adult Probiotic] aspirin 81 mg tablet,delayed 81 mg PO QAM 03/05/19 07/08/22 History release (Adult Low Dose Aspirin) finasteride 5 mg tablet (Proscar) 5 mg PO HS 03/05/19 07/08/22 History multivitamin 1 tab PO HS 03/05/19 07/08/22 History CPAP Machine #1 ea 05/16/19 06/23/22 Rx CPAP Supplies #1 ea 05/16/19 06/23/22 Rx omeprazole 20 mg capsule,delayed 20 mg PO QAM 07/28/20 07/08/22 History release carboxymethylcellulose sodium 0.5 1 drp ophthalmic (eye) QID PRN Dry 07/09/21 07/08/22 History % eye drops in a dropperette Eyes (Lubricant Eye Drops) tumeric 100 mg-vishnu 150 mg-olive 1 cap PO HS 07/09/21 07/08/22 History 50 mg-oreg 150 mg-caprylate capsule acetaminophen 500 mg tablet 1,000 mg PO QID 07/13/21 07/08/22 History (Tylenol Extra Strength) prednisolone acetate 1 % eye 2 drp ophthalmic (eye) QID 11/18/21 07/08/22 History drops,suspension ipratropium bromide 21 mcg (0.03 2 spray intranasal BID #30 mL 04/11/22 07/08/22 Rx %) nasal spray mirabegron 50 mg tablet,extended 50 mg PO QAM 06/09/22 07/08/22 History release 24 hr (Myrbetriq) tamsulosin 0.4 mg capsule 0.4 mg PO HS 06/09/22 07/08/22 History gabapentin 300 mg capsule 300 mg PO QID #120 caps 07/01/22 07/08/22 Rx rosuvastatin 10 mg tablet (Crestor) 10 mg PO HS 07/08/22 07/08/22 History oxycodone 5 mg tablet 5 mg PO Q6H PRN pain #30 tabs 07/09/22 Rx tramadol 50 mg tablet 50 mg PO Q6H PRN pain, moderate 07/09/22 Rx #30 tabs Patient History Medical History Acid reflux BPH (benign prostatic hyperplasia) CAD (coronary artery disease) Cervical stenosis of spinal canal Detached retina, left Dyslipidemia Erectile dysfunction History of hepatitis History of renal calculi Hx MRSA infection Hypertension Lumbar stenosis with neurogenic claudication Mild obstructive sleep apnea Nocturnal hypoxemia Seasonal allergies Surgical History H/O eye surgery (11/08/21) History of cardiac cath History of corneal transplant History of esophagogastroduodenoscopy (EGD) History of inguinal hernia repair History of knee surgery History of uvulectomy (2000) Hx of colonoscopy S/P cataract extraction S/P cervical spinal fusion (07/10/17) S/P decompression of ulnar nerve S/P fusion of thoracic spine (2011) S/P lumbar fusion (2003) S/P nasal septoplasty S/P tonsillectomy and adenoidectomy (2000) Family History Father Myocardial infarction, Onset Age: 60 Heart disease S/P CABG x 4 Mother Myocardial infarction, Onset Age: 60 Heart disease S/P CABG x 4 Diabetes Kidney disease Brother Anxiety Esophageal cancer Pacemaker Denies family history of Ovarian cancer Prostate cancer Breast cancer Colorectal cancer Social History Smoking Status: Never smoker Tobacco Type: Smokeless Tobacco (Dip or Chew) Age Started Using Tobacco: 14; packs per day: 1; Second Hand Exposure: No; Do You Dip or Chew Tobacco: Yes (1 can/week - advised ); Hx Alcohol Use: Yes Alcohol type: beer Alcohol Intake Frequency: 4 or More x per/Week Hx Substance Use: No Preferred Language: Guinean Communication Ability: Effective Visual Impairment: No Limitations Hearing Ability: Normal Shingle Grader Required: No Beliefs That Will Affect Care: None marital status: Current Living Situation: Spouse current occupational status: employed current occupation: middle school science teacher How many Children do You have: 5 Feels Safe at Home: Yes Childhood Exposure to Second-Hand Smoke: Yes Diet: regular Diet Comment: regular caffeine: Yes (coffee) during the past year weight has: remained stable Dental Care, Regularly: Yes Physical Activity Frequency: Daily Seatbelt Use: always Sunscreen Use: Yes Assistive Devices: None Physical Exam Physical Exam: Physical Exam: General: In no acute distress, stated age, well-nourished, good hygiene HEENT: Normocephalic, currently with cervical collar in place, no scleral icterus, pupils around round, symmetrical, and reactive to light, moist mucus membranes, trachea midline, no thyromegaly Chest/Pulm: No respiratory distress, symmetrical chest expansion, clear breath sounds throughout Cardiac: RRR, no murmurs noted Abdomen: Negative for ascites and bruising, normoactive bowel sounds, soft, non-tender to palpation throughout Musculoskeletal: C-collar in place, procedure site on the anterior neck is currently bandaged and without signs of drainage, symmetrical ROM in the BL upper and lower extremities Extremities: Radial, dorsalis pedis, and posterior tibial pulses are intact and symmetrical, no edema noted in the BL LE's Skin: Warm, dry, no rashes , lesions, or scars noted Neuro: Alert and oriented to person, place, month, year, and president, no focal defects, CN II-XII (excluding CN XI due to c-collar) tested and intact,no tremors noted Psych: No acute distress, calm and cooperative during the exam Results & Data Results & Data Vital Signs (Past 12 Hours) Vital Signs Temp Pulse Pulse Resp BP Pulse Ox O2 Del Method 07/08/22 13:35 36.7 C 66 16 147/89 H 98 Nasal Cannula 07/08/22 13:20 84 19 136/88 99 Nasal Cannula 07/08/22 13:10 36.2 C L 64 12 135/77 100 Nasal Cannula 07/08/22 13:00 58 L 12 133/81 100 Nasal Cannula 07/08/22 12:50 76 12 154/91 H 100 Nasal Cannula 07/08/22 12:40 65 12 143/84 H 100 Nasal Cannula 07/08/22 12:30 90 12 141/87 H 100 Nasal Cannula 07/08/22 12:20 93 H 20 164/99 H 100 Oxymask 07/08/22 12:10 84 16 146/92 H 100 Oxymask 07/08/22 12:00 84 12 149/94 H 100 Oxymask 07/08/22 11:54 36.1 C L 84 16 156/89 H 100 Oxymask 07/08/22 08:42 36.6 C 57 L 18 122/82 97 Room Air O2 Flow Rate 07/08/22 13:35 2 07/08/22 13:20 2 07/08/22 13:10 2 07/08/22 13:00 2 07/08/22 12:50 2 07/08/22 12:40 4 07/08/22 12:30 4 07/08/22 12:20 2 07/08/22 12:10 13 07/08/22 12:00 13 07/08/22 11:54 13 07/08/22 08:42 Diagnostic Findings Cervical Spine X-Ray 07/08/22 09:35 FL cervical 2-3V CLINICAL HISTORY: C3-C5 ACDF C5-C7 HW REMOVAL COMPARISON STUDY: None. FLUOROSCOPY TIME: 7 seconds FLUOROSCOPY IMAGES: 2 Ka,r: 1.3 mGy FINDINGS: Anterior cervical discectomy and fusion noted from C3 through C5. There is also a prior anterior cervical discectomy and fusion at C5-C7. The hardware appears intact. IMPRESSION: Fluoroscopic assistance as above. ACT 112: Negative or not required by law. Electronically signed by: Aleksandr Coronado M.D. 07/08/2022 12:04 PM PG Care Time/CCT Total # of Minutes Spent Total Time Spent with Patient: Total time spent is greater than 50% in coordination of care (as documented) at patient's floor/unit and/or counseling patient: Coding [place] [address] IN/OBS CONSULT LVL 3,45M Patient Type Established Medical Decision Making High Complexity Diagnoses Status post cervical spinal fusion Z98.1 Nocturnal hypoxemia G47.34 Benign localized prostatic hyperplasia with lower urinary tract symptoms (LUTS) N40.1 Hypertension I10 Dyslipidemia E78.5 CAD (coronary artery disease) I25.10 Associated angina: without angina Coronary Disease-Associated Artery/Lesion type: [place] artery [place] vs. transplanted heart: [place] heart Acid reflux K21.9 (6) CAD (coronary artery disease) Associated angina: without angina Coronary Disease-Associated Artery/Lesion type: [place] artery [place] vs. transplanted heart: [place] heart Qualified Code(s): I25.10 - Atherosclerotic heart disease of [place] coronary artery without angina pectoris
[2022-07-08] MEDS: GABAPENTIN 300 MG CAP PO SCH ×3 (15:58→20:57)
[2022-07-08] MEDS: oxyCODONE HCL IR 5 MG TAB (IMMEDIATE RELEASE) PO PRN ×2 (15:59→23:13)
[2022-07-08] MEDS: prednisoLONE acetate 1% OP SUSP 5 ML BTL OPL SCH ×2 (17:47→20:55)
[2022-07-08] MEDS: ceFAZolin 2000MG 2,000 MG/15 ML SYR IV SCH (17:49)
[2022-07-08] MEDS: IPRATROPIUM BROMIDE NASAL SPRAY 0.06% 15ML NAE SCH (20:54)
[2022-07-08] MEDS ORDERED: ROSUVASTATIN CALCIUM 10 MG TAB PO SCH (21:00)
[2022-07-08] MEDS ORDERED: FINASTERIDE 5 MG TAB PO SCH (21:00)
[2022-07-08] MEDS ORDERED: DOCUSATE SODIUM/SENNA 50/8.6MG TAB PO SCH (21:00)
[2022-07-08] MEDS ORDERED: TAMSULOSIN HCL 0.4 MG CAP PO SCH (21:00)
[2022-07-08] MEDS ORDERED: MULTIVITAMIN TAB PO SCH (21:00)
[2022-07-09] MEDS: ceFAZolin 2000MG 2,000 MG/15 ML SYR IV SCH (01:11)
[2022-07-09] MEDS: oxyCODONE HCL IR 5 MG TAB (IMMEDIATE RELEASE) PO PRN ×2 (03:25→08:29)
[2022-07-09] MEDS: LACTATED RINGER'S 1,000 ML IV SCH (03:29)
[2022-07-09] MEDS ORDERED: POLYETHYLENE (MIRALAX) 17 GM PACK PO SCH (06:00)
[2022-07-09 06:21] LABS: Basophils # (auto) 0.01 K/uL (0-0.2); Basophils % (auto) 0.1 %; Hemoglobin 13.1 g/dl (14.0-18.0); Immature Granulocytes # (auto) 0.05 K/uL (0.01-0.20); Immature Granulocytes % (auto) 0.6 %; Lymphocytes # (auto) 0.85 K/uL (1.2-3.4); Lymphocytes % (auto) 9.6 %; Mean Corpuscular Hemoglobin 33.2 pg (25.0-34.0); Mean Corpuscular Hgb Conc 34.5 g/dL (32.0-36.0); Mean Corpuscular Volume 96.4 fL (80.0-100.0); Mean Platelet Volume 8.8 fL (9.4-12.4); Monocytes # (auto) 0.37 K/uL (0.11-0.59); Monocytes % (auto) 4.2 %; Neutrophils # (auto) 7.55 K/uL (1.40-6.50); Neutrophils % (auto) 85.5 %; Platelet Count 228 K/uL (130-400); RDW Coefficient of Variation 12.3 % (11.5-14.5); RDW Standard Deviation 43.6 fL (36.4-46.3); Red Blood Count 3.94 M/uL (4.70-6.10); White Blood Count 8.83 K/ul (4.8-10.8)
[2022-07-09 06:26] LABS: BUN Creatinine Ratio 15.9 (10-20); Calcium 9.4 mg/dl (8.6-10.3); Creatinine Clr Calc Pharmacy 85.2 ml/min; Est GFR (African American) 101.6 ml/min; Est GFR (Non-African American) 87.6 ml/min
[2022-07-09 06:28] LABS: Prothrombin Time 10.7 Seconds (9.0-12.0)
--- NOTE | 2022-07-09 07:59 | Hospitalist Progress Note ---
Date of Service July 09, 2022 Assessment & Plan (1) Status post cervical spinal fusion: Plan: POD# 1 s/p 1. Anterior cervical discectomy with bilateral foraminotomies C3-C4 C4-C5. #2 intercept arthrodesis C3-C4 C4-C5. #3 placement of globus coalition cage 8 mm in height filled with I factor at C3-C4 C4-C5. with Dr Kyle on 07/08. EBL 10cc WBC wnl, afebrile Hgb 13.6--> 13.1, acute blood loss from surgery/dilutional from VIF Pain control/bowel regimen/PT/OT per primary service Planning for discharge today (2) Nocturnal hypoxemia: Plan: Hx of FIORDALIZA, typically uses HS CPAP -Will hold CPAP for now with recent neck surgery and C-collar in place (3) Benign localized prostatic hyperplasia with lower urinary tract symptoms (LUTS): Plan: -Continue flomax and proscar (4) Hypertension: Plan: -Stable off antihypertensives, continue to monitor -- BP 131/77 (5) Dyslipidemia: Plan: -Continue crestor (6) CAD (coronary artery disease): Plan: -Non-obstructive CAD on heart cath in 2000 Aspirin restarted today (7) Acid reflux: Plan: -Protonix and prn famotidine ordered by primary team Plan Thank you for allowing hospitalist service to participate in the care of Mr Yeh. Stable for discharge. Please call with any questions/concerns. Admission and Anticipated Discharge Date Admission Date: July 08, 2022 Supervising Physician Co-Signing Physician Notes DANIEL Supervision Note: I did not personally see or examine the patient today, but I verified all savage points of DANIEL Zarco's assessment and plan with the following exceptions/additions: None Subjective eval this morning, at bedside doing well tolerating diet fleming removed this morning and urinating without issue passing gas but no BM, given miralax this morning and discussed continuing bowel regimen at discharge as he is planning for discharge today. Pain/shooting pains down his arms resolved since surgery, no issues with swallowing. No CP/SOB. Questions/concerns addressed at this time Review of Systems Review of Systems: All systems reviewed & are unremarkable except as noted in HPI & below Physical Exam Physical Exam: General: WD/WN male sitting up in bed on the phone, at bedside, NAD, ready for discharge HEENT: head normocephalic, atraumatic, incision to neck with dressing c/d/i, drain with scant drainage, minimal edema, no stridor Resp: CTA, no w/c/r, on room air CV: RRR, faint murmur, no significant r/g, no pitting edema/calf tenderness GI: +BS, nontender MSK/Neuro: no focal deficit, strength equal bilaterally ambulating to bathroom without difficulty or assistive device Psych; AOx3, pleasant and cooperative Results & Data Results & Data Vital Signs (Past 12 Hours) Vital Signs Temp Pulse Resp BP Pulse Ox O2 Del Method O2 Flow Rate 07/09/22 07:36 Room Air 07/09/22 07:27 96 H 18 94 Room Air 07/09/22 07:09 36.5 C 69 16 117/75 96 Room Air 07/09/22 05:34 36.6 C 86 18 130/80 96 Nasal Cannula 2 07/09/22 03:12 78 18 97 Nasal Cannula 1 07/09/22 03:19 36.5 C 64 18 117/70 97 Nasal Cannula 2 07/09/22 01:12 36.4 C L 71 16 121/75 97 Nasal Cannula 2 07/08/22 23:09 36.5 C 67 18 121/74 97 Nasal Cannula 2 07/08/22 22:51 77 18 96 Nasal Cannula 2 07/08/22 20:50 36.4 C L 64 16 125/75 97 Nasal Cannula 2 Laboratory Results 07/09/22 07/09/22 07/09/22 Range/Units 05:32 05:32 05:32 WBC 8.83 (4.8-10.8) K/ul RBC 3.94 L (4.70-6.10) M/uL Hgb 13.1 L (14.0-18.0) g/dl Hct 38.0 L (42.0-52.0) % MCV 96.4 (80.0-100.0) fL MCH 33.2 (25.0-34.0) pg MCHC 34.5 (32.0-36.0) g/dL RDW Std Deviation 43.6 (36.4-46.3) fL RDW Coeff of Ye[place] 12.3 (11.5-14.5) % Plt Count 228 (130-400) K/uL MPV 8.8 L (9.4-12.4) fL Immature Gran % (Auto) 0.6 % Neut % (Auto) 85.5 % Lymph % (Auto) 9.6 % Taylor % (Auto) 4.2 % Eos % (Auto) 0.0 % Baso % (Auto) 0.1 % Neut # (Auto) 7.55 H (1.40-6.50) K/uL Lymph # (Auto) 0.85 L (1.2-3.4) K/uL Taylor # (Auto) 0.37 (0.11-0.59) K/uL Eos # (Auto) 0.00 (0-0.50) K/uL Baso # (Auto) 0.01 (0-0.2) K/uL Immature Gran # (Auto) 0.05 (0.01-0.20) K/uL PT 10.7 (9.0-12.0) Seconds INR 1.0 (0.9-1.1) Sodium 138 (136-145) mmol/L Potassium 4.0 (3.5-5.1) mmol/L Chloride 102 (98-107) mmol/L Carbon Dioxide 26 (21-32) mmol/L Anion Gap 10 (3-11) BUN 14 (6-23) mg/dl Creatinine 0.88 (0.6-1.4) mg/dl Est Cr Clr Drug Dosing 85.2 ml/min Est GFR ( Amer) 101.6 ml/min Est GFR (Non-Af Amer) 87.6 ml/min BUN/Creatinine Ratio 15.9 (10-20) Glucose 122 H (70-99(Fasting)) mg/dl Calcium 9.4 (8.6-10.3) mg/dl Diagnostic Findings Cervical Spine X-Ray 07/08/22 09:35 FL cervical 2-3V CLINICAL HISTORY: C3-C5 ACDF C5-C7 HW REMOVAL COMPARISON STUDY: None. FLUOROSCOPY TIME: 7 seconds FLUOROSCOPY IMAGES: 2 Ka,r: 1.3 mGy FINDINGS: Anterior cervical discectomy and fusion noted from C3 through C5. There is also a prior anterior cervical discectomy and fusion at C5-C7. The hardware appears intact. IMPRESSION: Fluoroscopic assistance as above. ACT 112: Negative or not required by law. Electronically signed by: Aleksandr Coronado M.D. 07/08/2022 12:04 PM PG Care Time/CCT Total # of Minutes Spent Total Time Spent with Patient: Total time spent is greater than 50% in coordination of care (as documented) at patient's floor/unit and/or counseling patient: Coding Level of Care Code 19181 SUB INP/OBS CARE 2/35MIN Diagnoses Status post cervical spinal fusion Z98.1 Nocturnal hypoxemia G47.34 Benign localized prostatic hyperplasia with lower urinary tract symptoms (LUTS) N40.1 Hypertension I10 Dyslipidemia E78.5 CAD (coronary artery disease) I25.10 Associated angina: without angina Coronary Disease-Associated Artery/Lesion type: [place] artery [place] vs. transplanted heart: [place] heart Acid reflux K21.9 (6) CAD (coronary artery disease) Associated angina: without angina Coronary Disease-Associated Artery/Lesion type: [place] artery [place] vs. transplanted heart: [place] heart Qualified Code(s): I25.10 - Atherosclerotic heart disease of [place] coronary artery without angina pectoris
[2022-07-09] MEDS: GABAPENTIN 300 MG CAP PO SCH (08:24)
[2022-07-09] MEDS: IPRATROPIUM BROMIDE NASAL SPRAY 0.06% 15ML NAE SCH (08:25)
[2022-07-09] MEDS: prednisoLONE acetate 1% OP SUSP 5 ML BTL OPL SCH (08:25)
[2022-07-09] MEDS ORDERED: ASPIRIN 81 MG ECTAB PO SCH (09:00)
[2022-07-09] MEDS ORDERED: dexAMETHasone 6 MG in SYRINGE 0 ML IV SCH (09:00)
[2022-07-09] MEDS ORDERED: VIBEGRON 75 MG TAB PO SCH (09:00)
[2022-07-09] MEDS ORDERED: PANTOprazole 40 MG TAB PO SCH (09:00)
--- NOTE | 2022-07-09 09:52 | Discharge Summary ---
Date of Service July 09, 2022 Principal Diagnosis Cervical stenosis with radiculopathy Discharge Data Allergies Allergy/AdvReac Type Severity Reaction Status Date / Time bee venom protein (honey bee) Allergy Severe Anaphylaxis Verified 07/08/22 08:35 cat dander Allergy Severe Difficulty Verified 07/08/22 08:35 Breathing Horse/Equine Containing Allergy Unknown RASH/GENERALIZED Verified 07/08/22 08:35 Products SWELLING tetanus toxoid, adsorbed Allergy Unknown RASH/GENERALIZED Verified 07/08/22 08:35 SWELLING Consultations 07/08/22 13:53 Consult Hospitalist Routine Procedures Performed Operation Date: 07/08/22 09:35 Actual Procedures p C3-C4 and C4-C5 Anterior Cervical Discectomy and Fusion, , Spinal Cord Monitoring(Not Applicable) - Jose Kyle DO s C5-C7 Hardware Removal(Not Applicable) - Jose Kyle DO Ordered Studies 07/08/22 09:35 FL cervical 2-3V Routine Hospital Course (1) Status post cervical spinal fusion: Patient underwent anterior cervical discectomy and fusion tolerated this well was taken to the orthopedic for postop labor postop day 1 he was swallowing well. Excellent strength testing. GAGANDEEP drain decreasing probably. Subsequent discharge home. Discharge orders and instructions found in chart for further review. Total Time Total Time Spent Total Time Spent (In Minutes): 20 minutes Discharge Plan Discharge Items Patient Disposition: Home - Self-Care Reason For Visit: POSTOP Discharge Diagnosis: cervical spinal stenosis with radiculopathy Activity: As commented below Non-emergency contact: Primary Care Provider Call non-emergency contact if: you have any medication questions Follow-up/Referrals: Trupti Reese DO [Primary Care Provider] - Diet: Regular Addtl Attending Provider Instructions: ACTIVITY RECOMMENDATIONS: SELF CARE INSTRUCTIONS AFTER CERVICAL FUSIONS 1. No smoking. Smoking drastically decreases the chance of a solid fusion. 2. No bending, lifting more than 5 pounds, or twisting (roll like a log when turning in bed). 3. You may shower 3 days after surgery. Thoroughly dry wound. Do not soak in the tub. 4. Cervical collar: Must be worn at all times including sleeping. You may remove the brace only to bath, eat and if you are sitting in a recliner. 5. Please walk as much as you can for exercise. Gradually increase the distance that you walk as your endurance increases. SPECIAL CARE INSTRUCTIONS: VERY IMPORTANT TO READ AND REVIEW A. Do not take any anti-inflammatory medications (i.e. Indocin, Advil, Aspirin, Naprosyn, Aleve, Motrin, etc.) as these may inhibit the chance of a solid fusion. Tylenol is okay to take. B. Your surgical incision has been closed with a cosmetic suture under the skin that will dissolve in about 6 weeks. In 14 days, you can use a pair of clean scissors and cut the suture that is left outside of the skin at the ends of your incision. C. Complications are uncommon, but please contact us if you have any signs or symptoms of: 1. wound infection (fever higher than 102.5 degrees F, redness, separation of wound, drainage, or increasing pain from the incision) 2. blood clots in legs (pain, swelling, redness and warmth in legs) 3. urinary tract infection (fever higher than 102.5 degrees, burning upon urination or increased frequency of urination) 4. nerve problems (inability to walk on your toes or heels, numbness, loss of bowel or bladder control) 5. any other symptoms that concern you. D. Please call the office at if you have any concerns or questions about your operation or recovery. MANAGING PAIN AFTER SPINAL SURGERY 1. Narcotic medication is intended for short-term use and will be provided for surgical pain. Surgical pain usually lasts for a period of 4-6 weeks. Narcotic medication includes Percocet, Vicodin, Darvocet, Tylenol #3 or Lortab. 2. Longer-term pain is more appropriately treated with non-narcotic medication such as Tylenol ES. 3. Muscle spasm is not appropriately treated with narcotics. Muscle relaxers such as Soma, Flexeril or Skelaxin can be used along with Tylenol ES. 4. Remember that we all live with some "aches and pains". This is not unusual or uncommon after an injury or as we get older. 5. We will provide appropriate medication within the normal guidelines of their prescribed use. We will also be very cautious and aware of potential abuse and extended duration of patients' medication needs. 6. Please allow 2-3 days to process refills. Prescriptions will not be mailed but must be picked up at the office. FOLLOW UP VISIT: Keep your scheduled follow-up appointment. Any questions, please call the office at . Pending Studies at Discharge: No Stand-Alone Forms: [facility], Smoking Cessation Medications and DC Order Prescriptions: New tramadol 50 mg tablet 50 mg PO Q6H PRN (Reason: pain, moderate) Qty: 30 0RF oxycodone 5 mg tablet 5 mg PO Q6H PRN (Reason: pain) Qty: 30 0RF Continued (DME) CPAP Supplies Misc See Rx Instructions .ROUTE .MEDSUPPLY Qty: 1 0RF Rx Instructions: NEW FACE MASK (DME) CPAP Machine Misc See Rx Instructions .ROUTE .MEDSUPPLY Qty: 1 0RF Rx Instructions: Auto CPAP 5-20 cm water pressure with heated humidification, tubing, and supplies. SAIMA: 99+ years. ipratropium bromide 21 mcg (0.03 %) spray,non-aerosol 2 spray intranasal BID Qty: 30 2RF Rx Instructions: administer into each nostril gabapentin 300 mg capsule 300 mg PO QID Qty: 120 5RF omeprazole 20 mg capsule,delayed release(DR/EC) 20 mg PO QAM acetaminophen [Tylenol Extra Strength] 500 mg tablet 1,000 mg PO QID nzuqpgh-epdx-detzl-oreg-capryl 100 mg-150 mg- 50 mg-150 mg capsule 1 cap PO HS carboxymethylcellulose sodium [Lubricant Eye Drops] 0.5 % dropperette 1 drp ophthalmic (eye) QID PRN (Reason: Dry Eyes) Rx Instructions: B/L eye prednisolone acetate 1 % drops,suspension 2 drp ophthalmic (eye) QID Rx Instructions: Left eye zinc 50 mg tablet 50 mg PO HS lactobacillus combination no.8 1 tab PO HS multivitamin Tablet 1 tab PO HS aspirin [Adult Low Dose Aspirin] 81 mg tablet,delayed release (DR/EC) 81 mg PO QAM finasteride [Proscar] 5 mg tablet 5 mg PO HS tamsulosin 0.4 mg capsule 0.4 mg PO HS Myrbetriq 50 mg tablet extended release 24 hr 50 mg PO QAM rosuvastatin [Crestor] 10 mg tablet 10 mg PO HS Discharge Orders: Discharge Order (Routine); Ordered 07/09/22 Ordered By: Jose Kyle Admission Data Admit Date/Time: 07/08/22 11:45 Attending Provider: Jose Kyle Admit Provider: Jose Kyle Primary Care Provider: Trupti Reese Other Providers: Charly Daugherty ; Regla Hoff
[2022-07-10] MEDS ORDERED: ASPIRIN 81 MG ECTAB PO SCH (09:00)
== END 2022-07-09 11:55 | disposition home or self-care (01) ==
LOC: ASU 07:29 → 3E 11:45 → INTOOBSV 11:45 → OBSVTOIN 11:45